=== PATIENT | male | born 1975 | race Caucasian/White ===

== ENCOUNTER 2016-12-03 00:55 | Emergency (ER) | payer OTHER ==
[~2016-12-03] VITALS: Ht 175.3 cm; Wt 92.3 kg
[2016-12-03 00:59] VITALS: Ht 175.3 cm; Wt 92.3 kg
[2016-12-03] MEDS ORDERED: SODIUM CHLORIDE 0.9% 1000ML 1,000 ML IV STA ×4 (01:08→03:34)
[2016-12-03] MEDS ORDERED: MoRPHine SULFATE 4 MG/ML 1 ML CARP\\VIAL IV STA (01:08)
[2016-12-03] MEDS ORDERED: CITA20TA4 PO (01:19)
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
[2016-12-03 01:47] LABS: BASO % 0.5 %; BASO ABS # 0.03 K/uL (0-0.2); COMPLETE YES; EOS % 5.5 %; HEMATOCRIT 44.1 % (42-52); IG% 0.5 %; LYMPH % 47.3 %; LYMPH ABS # 3.09 K/uL (1.2-3.4); MEAN CELL VOLUME 88.7 fL (80-100); MEAN CORPUSCULAR HEMOGLOBIN 31.4 pg (25-34); MEAN CORPUSCULAR HGB CONC 35.4 g/dl (32-36); MEAN PLATELET VOLUME 9.6 fL (7.4-10.4); MONO % 9.8 %; NEUT % 36.4 %; PLATELET COUNT 326 K/uL (130-400); RED BLOOD COUNT 4.97 M/uL (4.7-6.1); WHITE BLOOD COUNT 6.53 K/uL (4.8-10.8)
[2016-12-03 01:55] LABS: INR 0.9 (0.9-1.1); PROTHROMBIN TIME (PATIENT) 9.9 SECONDS (9.0-12.0)
[2016-12-03 02:06] VITALS: O2SAT 98
[2016-12-03 02:18] LABS: BUN/CREATININE RATIO 13.9 (10-20); CALCIUM 7.8 mg/dl (8.5-10.1); CREATININE 0.87 mg/dl (0.60-1.40); POTASSIUM 3.7 mmol/L (3.5-5.1)
[2016-12-03 02:21] LABS: ALB/GLOB RATIO 1.1 (0.9-2)
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
[2016-12-03 07:44] VITALS: BP 128/83
[2016-12-03 07:45] VITALS: PULSE 87; O2SAT 92
== END 2016-12-03 08:06 | disposition short-term general hospital (02) ==
LOC: C.EDB 00:57 → C.EDA 08:06
DX: T20.00XA Burn of unspecified degree of head, face, and neck, unspecified site, initial encounter (principal); T22.00XA Burn of unspecified degree of shoulder and upper limb, except wrist and hand, unspecified site, initial encounter; T23.002A Burn of unspecified degree of left hand, unspecified site, initial encounter; T24.001A Burn of unspecified degree of unspecified site of right lower limb, except ankle and foot, initial encounter; T31.22 Burns involving 20-29% of body surface with 20-29% third degree burns; X08.8XXA Exposure to other specified smoke, fire and flames, initial encounter; F10.129 Alcohol abuse with intoxication, unspecified; Y90.8 Blood alcohol level of 240 mg/100 ml or more; F41.9 Anxiety disorder, unspecified; Z79.899 Other long term (current) drug therapy

== ENCOUNTER 2023-11-24 21:52 | Inpatient (IN) ==
--- OUTSIDE RECORDS SUMMARY | 2023-11-24 21:59 | External Medical Summary | Summary of Care ---
Author Name Unknown Organization [facility] Address [address] [place] [address] Phone [phone] Care Team Providers Care Windlasser Name Role Phone Ramy Verdin Primary Care Provider [phone] Reason for Visit * Reason Onset Date Comments Test Results 11/02/2023 Encounter Details Date Type Department Care Team (Late st Contact Info) Description 11/02/2023 Telephone Family Practice [facility] [address] [place] [address] Pilo Avila DO [address] [place] [address] Test Results Allergies No known active allergiesdocumented as of this encounter (statuses as of 11/02/2023) Medications Medication Sig Dispensed Refills Start Date End Date Status Losartan Potassium 50 MG Oral Tablet (Cozaar)Indications:HT N, goal below 140/90 Take 1.5 Tablets by mouth in the morning. 45 Tablet 5 06/25/2023 Active Citalopram Hydrobromide 20 MG Oral Tablet (CeleXA)Indications:Pa beckie attacks TAKE 1 TABLET BY MOUTH EVERY MORNING 90 Tablet 1 10/29/2023 Active Albuterol Sulfate HFA 108 (90 Base) MCG/ACT Inhalation Aerosol SolutionIndications:Re active airway disease without complication, unspecified asthma severity, unspecified whether persistent Inhale 2 Puffs by mouth in the morning and 2 Puffs at noon and 2 Puffs in the evening and 2 Puffs before bedtime. 18 g 2 10/30/2023 Active Hospital, Clinic, or Other Facility Administered Medication Ordered Dose Route Frequency Start Date End Date Status Albuterol Sulfate (Proventil) (2.5 MG/3ML) 0.083% inhalation solution 2.5 mgIndications:Chronic cough,Chest congestion,Reactive airway disease without complication, unspecified asthma severity, unspecified whether persistent 2.5 mg NEBULIZER ONCE PRN 10/16/2023 10/15/2024 Active documented as of this encounter (statuses as of 11/02/2023) Active Problems Problem Noted Date Diagnosed Date HTN, goal below 130/80 06/25/2023 Mild intermittent asthma without complication Panic attacks 05/19/2015 documented as of this encounter (statuses as of 11/02/2023) Immunizations Name Administration Dates Next Due TDAP (age 10 and older)(Boostrix) 05/19/2015 documented as of this encounter Social History Tobacco Use Types Packs/Day Years Used Date Smoking Tobacco: Never Smokeless Tobacco: Current Snuff Alcohol Use Standard Drinks/Week Comments Yes 10 (1 standard drink = 0.6 oz pu re alcohol) PHQ-2 Answer Date Recorded PHQ Adult Total Score 0 04/05/2022 Utilities Answer Date Recorded Do you have trouble paying y our heating, water, or electric bill? (Adult - for ages 18 years and over) Not on file 10/23/2023 Is your family able to pay t he heat, water, or electric bill? (Household - for ages 0-17 years) Not on file 10/23/2023 Does your family have access to good internet? (Household - for ages 0-17 years) Not on file 10/23/2023 Social Connections Answer Date Recorded How often do you feel lonely or isolated from those around you? (Adult - for ages 18 years and over) Not on file 10/23/2023 Sex and Gender Information Value Date Recorded Sex Assigned at Male 04/02/2023 3:55 PM EST Gender Identity Male 04/02/2023 3:55 PM EST Sexual Orientation Straight 04/02/2023 3: 55 PM EST Job Start Date Occupation Industry Not on file Not on file Not on file documented as of this encounter Miscellaneous Notes * Telephone Encounter - Arlet Ospina MED ASSIST - 11/02/2023 12:57 PM EDT Called patient, left message to return call. Myg sent * Telephone Encounter - Arlet Ospina MED ASSIST - 11/02/2023 12:54 PM EDT ----- Message from Pilo Avila DO sent at 11/02/2023 12:00 PM EDT ----- Reviewed patient's CT chest results. No acute abnormality noted. Is scheduled for PFTs in December. If any worsening symptoms should follow-up in the office documented in this encounter Plan of Treatment Upcoming Encounters Date Type Department Care Team (Late st Contact Info) Description 12/19/2023 3:00 PM EDT PulmDiagnostic Pulmonary Function Lab, [facility] [address] [facility] [address] [place] [address] [place], [address] [place] [address] 01/01/2024 10:20 AM EDT Office Visit General Internal Medicine [facility] [address] [facility] [place] [address] Betty Shin MD [address] [facility] [place] [address] Health Maintenance Due Date Last Done Comments Lipid Panel 1975 Pneumococcal Vaccine: Pediatrics (0 to 5 Years) and At-Risk Patients (6 to 64 Years) (1 of 2 - PCV) 1981 HIV Screening 1990 Hepatitis C Screening 1993 Hepatitis B (1 of 3 - 19+ 3-dose series) 1994 Colonoscopy 2020 Fecal Occult Blood Test 2020 Sigmoidoscopy 2020 COVID-19 Vaccine ( - 2022-2 4 season) 2023 Depression Screening 04/05/2023 04/05/2022 *SPIROMETRY ONCE FOR ASTHMA-ADULT 06/27/2023 Influenza Vaccine (FLU shot) (Season Ended) 2024 GFR 04/03/2024 04/03/2023, 12/04/2016 DTaP,Tdap,and Td Vaccines (2 - Td or Tdap) 05/19/2025 05/19/2015 Cologuard 05/30/2025 05/30/2022, 05/22/2022, 05/22/2022 Colorectal Cancer Screening 05/30/2025 Albumin/Creatinine Ratio 04/03/2026 04/03/2023 Diabetes Screening 04/03/2026 04/03/2023 GARDASIL-HPV IMMUNIZATION SERIES Aged Out No longer eligible b ased on patient's age to complete this topic MENINGOCOCCAL (MENACTRA/MENVEO) Aged Out No longer eligible b ased on patient's age to complete this topic documented as of this encounter Medical Devices Not on filedocumented as of this encounter Care Teams Windlasser Relationship Specialty Start Date End Date Ramy Verdin DO [address] [place] [address] PCP - General Family Medicine 05/19/15 documented as of this encounter
--- OUTSIDE RECORDS SUMMARY | 2023-11-24 21:59 | External Medical Summary | Summary of Care ---
Author Name Unknown Organization [facility] Address [address] [place] [address] Phone [phone] Care Team Providers Care Business Systems Manager Name Role Phone Ramy Verdin Primary Care Provider [phone] Reason for Visit * Reason Onset Date Comments Medication Refill 10/10/2023 Encounter Details Date Type Department Care Team (Late st Contact Info) Description 10/10/2023 Refill General Internal Medicine [facility] [address] [facility] [place] [address] Betty Shin MD [address] [facility] [place] [address] Acute bronchitis, antibiotics not indicated Allergies No known active allergiesdocumented as of this encounter (statuses as of 10/10/2023) Medications Medication Sig Dispensed Refills Start Date End Date Status ProAir HFA 108 (90 Base) MCG/ACT Inhalation Aerosol SolutionIndications:Ac [employer] bronchitis, antibiotics not indicated Inhale 2 Puffs by mouth 4 times a day as needed for Cough or Wheezing. 18 g 3 06/25/2023 Active Losartan Potassium 50 MG Oral Tablet (Cozaar)Indications:HT N, goal below 140/90 Take 1.5 Tablets by mouth in the morning. 45 Tablet 5 06/25/2023 Active Citalopram Hydrobromide 20 MG Oral Tablet (CeleXA)Indications:Pa beckie attacks TAKE 1 TABLET BY MOUTH EVERY MORNING 90 Tablet 08/01/2023 Active predniSONE 10 MG Oral Tablet (Deltasone)Indications :Acute bronchitis, unspecified organism 4 tab x 3d, 3tab x 3d, 2tab x 3d, 1tab x 3d 30 Tablet 08/07/2023 Active documented as of this encounter (statuses as of 10/10/2023) Active Problems Problem Noted Date Diagnosed Date HTN, goal below 130/80 06/25/2023 Mild intermittent asthma without complication Panic attacks 05/19/2015 documented as of this encounter (statuses as of 10/10/2023) Immunizations Name Administration Dates Next Due TDAP (age 10 and older)(Boostrix) 05/19/2015 documented as of this encounter Social History Tobacco Use Types Packs/Day Years Used Date Smoking Tobacco: Never Smokeless Tobacco: Current Snuff Alcohol Use Standard Drinks/Week Comments Yes 10 (1 standard drink = 0.6 oz pu re alcohol) PHQ-2 Answer Date Recorded PHQ Adult Total Score 0 04/05/2022 Sex and Gender Information Value Date Recorded Sex Assigned at Male 04/02/2023 3:55 PM EST Gender Identity Male 04/02/2023 3:55 PM EST Sexual Orientation Straight 04/02/2023 3: 55 PM EST Job Start Date Occupation Industry Not on file Not on file Not on file documented as of this encounter Miscellaneous Notes * Telephone Encounter - Magalie Moralez CPhT - 10/10/2023 1:03 PM EDT Called [facility]- they are filling for pt Pt calling to request ProAir HFA 108 (90 Base) MCG/ACT Inhalation Aerosol Solution . Informed pt that RX is available at their pharmacy. Pt verbalized understanding and stated they will check with their pharmacy regarding this medication. Thank you, Magalie Moralez CPhT II Manager [facility] 10/10/2023, 1:05 PM documented in this encounter Plan of Treatment Upcoming Encounters Date Type Department Care Team (Late st Contact Info) Description 10/16/2023 2:20 PM EDT Office Visit [facility] [address] [place] [phone] Nohemi Wright, [address] [facility] [place] [address] 10/16/2023 4:40 PM EDT Office Visit General Internal Medicine [facility] [address] [facility] [place] [address] Pilo Avila, [address] [address] 01/01/2024 10:20 AM EDT Office Visit General Internal Medicine [facility] [address] [facility] [place] [address] Betty Shin MD [address] [facility] [place] [address] Health Maintenance Due Date Last Done Comments [...] Not on filedocumented as of this encounter Visit Diagnoses Diagnosis Acute bronchitis, antibiotics not indicated Acute bronchitis documented in this encounter Care Teams Business Systems Manager Relationship Specialty Start Date End Date Ramy Verdin DO [address] [place] [address] PCP - General Family Medicine 05/19/15 documented as of this encounter
--- OUTSIDE RECORDS SUMMARY | 2023-11-24 21:59 | External Medical Summary | Summary of Care ---
Author Name Unknown Organization [facility] Address [address] [place] [address] Phone [phone] Care Team Providers Care Business Objects Report Developer Name Role Phone Ramy Verdin Primary Care Provider [phone] Reason for Referral * Precert (Within 10 days (routine)) - Pending Review Specialty Diagnoses / Procedures Referred By Contjose alberto t Referred To Contact Radiology Diagnoses Chronic cough Chest congestion Reactive airway disease without complication, unspecified asthma severity, unspecified whether persistent Procedures CT CHEST WO CONTRAST Pilo Avlia DO [address] [place] [address] Referral ID Status Reason Start Date Expiration Date V isits Requested Visits Authorized [id number] Pending Review 10/16/2023 999 999 Reason for Visit * Reason Comments Chest Discomfort Patient experiences a tightness in his throat that his inhaler relieves. There is some discomforting chest sensations that he experiences pretty consistently. Has been going on since May. Encounter Details Date Type Department Care Team (Late st Contact Info) Description 10/16/2023 4:40 PM EDT Office Visit General Internal Medicine [place] [address] [facility] [place] [address] Pilo Avila DO [address] [place] [address] Chronic cough*; Chest congestion; Reactive airway disease without complication, unspecified asthma severity, unspecified whether persistent Allergies No known active allergiesdocumented as of this encounter (statuses as of 10/17/2023) Medications Medication Sig Dispensed Refills Start Date End Date Status ProAir HFA 108 (90 Base) MCG/ACT Inhalation Aerosol SolutionIndication s:Acute bronchitis, antibiotics not indicated Inhale 2 Puffs by mouth 4 times a day as needed for Cough or Wheezing. 18 g 3 06/25/2023 Active Losartan Potassium 50 MG Oral Tablet (Cozaar)Indication s:HTN, goal below 140/90 Take 1.5 Tablets by mouth in the morning. 45 Tablet 5 06/25/2023 Active Citalopram Hydrobromide 20 MG Oral Tablet (CeleXA)Indication s:Panic attacks TAKE 1 TABLET BY MOUTH EVERY MORNING 90 Tablet 08/01/2023 Active Doxycycline Hyclate 100 MG Oral CapsuleIndications :Acute bronchitis, unspecified organism Take 1 Capsule by mouth in the morning and 1 Capsule before bedtime. Do all this for 7 days. Until gone.. 14 Capsule 08/07/2023 10/16/2023 Discontinued (Patient preference/d iscontinuati on) predniSONE 10 MG Oral Tablet (Deltasone)Indicat ions:Acute bronchitis, unspecified organism 4 tab x 3d, 3tab x 3d, 2tab x 3d, 1tab x 3d 30 Tablet 08/07/2023 10/16/2023 Discontinued (Medication List Clean Up) Hospital, Clinic, or Other Facility Administered Medication Ordered Dose Route Frequency Start Date End Date Status Albuterol Sulfate (Proventil) (2.5 MG/3ML) 0.083% inhalation solution 2.5 mgIndications:Chronic cough,Chest congestion,Reactive airway disease without complication, unspecified asthma severity, unspecified whether persistent 2.5 mg NEBULIZER ONCE PRN 10/16/2023 10/15/2024 Active documented as of this encounter (statuses as of 10/17/2023) Active Problems Problem Noted Date Diagnosed Date HTN, goal below 130/80 06/25/2023 Mild intermittent asthma without complication Panic attacks 05/19/2015 documented as of this encounter (statuses as of 10/17/2023) Immunizations Name Administration Dates Next Due TDAP (age 10 and older)(Boostrix) 05/19/2015 documented as of this encounter Social History Tobacco Use Types Packs/Day Years Used Date Smoking Tobacco: Never Smokeless Tobacco: Current Snuff Tobacco Cessation:Ready to Q uit: Not Asked; Counseling Given: Not Answered Alcohol Use Standard Drinks/Week Comments Yes 10 [...] on file documented as of this encounter Last Filed Vital Signs Vital Sign Reading Time Taken Comments Blood Pressure 130/80 10/16/2023 4:44 PM EDT Pulse 90 10/16/2023 4:44 PM EDT Temperature 36.7 C (98 F) 10/16/2023 4:44 PM EDT Respiratory Rate 16 10/16/2023 4:44 PM EDT Oxygen Saturation 98% 10/16/2023 4:44 PM EDT Inhaled Oxygen Concentration - - Weight 95.3 kg (210 lb) 10/16/2023 4:44 PM EDT Height - - Body Mass Index 31.01 07/26/2023 3:12 PM EDT documented in this encounter Progress Notes * Pilo Avila, - 10/16/2023 4:50 PM EDT Subjective Pilo Alexander is a 48 year old male. Chief Complaint Patient presents with Chest Discomfort Patient experiences a tightness in his throat that his inhaler relieves. There is some discomforting chest sensations that he experiences pretty consistently. Has been going on since May. HPI: Patient presents to office with continued sensation of chest congestion. Was seen for similar complaint in August 25, 2023. Had been noting since May overall. Treated with multiple courses ofantibiotics without much relief. Does state that albuterol HFA has helped. At last visit was given course of doxycycline 100 mg twice daily for 7 days as well as prednisone taper for possible bronchitis. Chest x-ray at that time was negative for acute cardiopulmonary pathology. States felt better for about 2 weeks after this regimen. Not needing inhaler much After that some symptoms seemed to return. States can still have occasional cough. Sometimes chest feels congested. Sometimes something stuck at back of throat. Albuterol seems to relieve this. Will at least wake up once at night. Also have symptoms in morning. States he does not feel ill. Fever chills. No sore throat/sinus pressure. No GI symptoms such as nausea or diarrhea Again states that inhaler provide some temporary relief. He does have a listed diagnosis of intermittent asthma. Unsure when his last spirometry testing was. Again did seem to note that he did not have any symptoms at all earlier this winter when his family took a vacation to [facility] PMH: Patient Active Problem List Diagnosis Panic attacks HTN, goal below 130/80 Mild intermittent asthma without complication Current Outpatient Medications Medication Sig Dispense Refill ProAir HFA 108 (90 Base) MCG/ACT Inhalation Aerosol Solution Inhale 2 Puffs by mouth 4 times a day as needed for Cough or Wheezing. 18 g 3 Losartan Potassium 50 MG Oral Tablet (Cozaar) Take 1.5 Tablets by mouth in the morning. 45 Tablet 5 Citalopram Hydrobromide 20 MG Oral Tablet (CeleXA) TAKE 1 TABLET BY MOUTH EVERY MORNING 90 Tablet 0 No current facility-administered medications for this visit. Past Medical History: Diagnosis Date HTN, goal below 140/90 Panic attacks Past Surgical History: Procedure Laterality Date REMOVAL OF TONSILS, UNDER AGE 12 VASECTOMY 01-28-2016 Review of patient's allergies indicates: No Known Allergies Family History Problem Relation Name Age of Onset Hypertension Mother Cancer Grandmother (Maternal) Blood cancer Diabetes Grandmother (Maternal) Cancer Grandfather (Maternal) Colon around age 65 Heart Disorder Grandmother (Paternal) DE Heart Disorder Grandfather (Paternal) Quad bypass Family Status Relation Status Mo Alive Depression Fa Alive Sis Alive Radha Alive Son Alive Son Alive MGMA (Not Specified) MGFA (Not Specified) PGMA (Not Specified) PGFA (Not Specified) Social History Socioeconomic History Marital status: Single Spouse name: Not on file Number of children: Not on file Years of education: Not on file Highest education level: Not on file Occupational History Occupation: Contractor Comment: Construction Tobacco Use Smoking status: Never Smokeless tobacco: Current Types: Snuff Vaping Use Vaping status: Never Used Substance and Sexual Activity Alcohol use: Yes Alcohol/week: 10.0 standard drinks of alcohol Types: 10 12 oz of beer per week Drug use: No Sexual activity: Yes Partners: Female Other Topics Concern WOWash Service Not Asked Blood Transfusions Not Asked Caffeine Concern Not Asked Occupational Exposure Not Asked Hobby Hazards Not Asked Sleep Concern Not Asked Stress Concern Not Asked Weight Concern Not Asked Special Diet Not Asked Back Care Not Asked Exercise Not Asked Bike Helmet Not Asked Seat Belt Yes Self-Exams Not Asked Social History Narrative Originally from [facility]. Came to [place] for work until he met someone here. Moved here 2013 Social Determinants of Health Financial Resource Strain: Not on file Food Insecurity: Not on file Transportation Needs: Not on file Physical Activity: Not on file Stress: Not on file Social Connections: Not on file Intimate Partner Violence: Not on file Housing Stability: Not on file Review of Systems Constitutional: Negative for chills, fatigue and fever. HENT: Negative for congestion, sore throat and trouble swallowing. Eyes: Negative for photophobia and pain. Respiratory: Positive for cough and wheezing. Negative for shortness of breath. Cardiovascular: Negative for chest pain, palpitations and leg swelling. Gastrointestinal: Negative for abdominal distention, abdominal pain, nausea and vomiting. Genitourinary: Negative for dysuria and frequency. Musculoskeletal: Negative for back pain and neck stiffness. Skin: Negative for pallor. Neurological: Negative for dizziness, light-headedness and headaches. Psychiatric/Behavioral: Negative for sleep disturbance. The patient is not nervous/anxious. Objective BP 130/80 | Pulse 90 | Temp 36.7 C (98 F) (Tympanic) | Resp 16 | Wt 95.3 kg (210 lb) | SpO2 98%| BMI 31.01 kg/m | BSA 2.15 m Physical Exam Constitutional: General: He is not in acute distress. Appearance: He is not ill-appearing. HENT: Head: Normocephalic and atraumatic. Right Ear: Tympanic membrane, ear canal and external ear normal. Left Ear: Tympanic membrane, ear canal and external ear normal. Nose: Nose normal. No congestion or rhinorrhea. Mouth/Throat: Mouth: Mucous membranes are moist. Pharynx: Oropharynx is clear. No oropharyngeal exudate or posterior oropharyngeal erythema. Eyes: General: No scleral icterus. Extraocular Movements: Extraocular movements intact. Conjunctiva/sclera: Conjunctivae normal. Pupils: Pupils are equal, round, and reactive to light. Neck: Vascular: No carotid bruit. Cardiovascular: Rate and Rhythm: Normal rate and regular rhythm. Pulses: Normal pulses. Heart sounds: Normal heart sounds. No murmur heard. No friction rub. No gallop. Pulmonary: Effort: Pulmonary effort is normal. No respiratory distress. Breath sounds: No stridor. Rhonchi present. No wheezing or rales. Comments: No tachypnea or accessory muscle use. Both lungs tympanic to percussion. Does have some scattered expiratory rhonchi but much improved from last visit. Chest: Chest wall: No tenderness. Abdominal: General: Bowel sounds are normal. There is no distension. Palpations: Abdomen is soft. There is no mass. Tenderness: There is no abdominal tenderness. There is no right CVA tenderness or left CVA tenderness. Musculoskeletal: General: No swelling or tenderness. Normal range of motion. Cervical back: Normal range of motion and neck supple. Right lower leg: No edema. Left lower leg: No edema. Skin: General: Skin is warm and dry. Coloration: Skin is not jaundiced. Findings: No rash. Neurological: General: No focal deficit present. Mental Status: He is oriented to person, place, and time. Cranial Nerves: No cranial nerve deficit. Sensory: No sensory deficit. Motor: No weakness. Psychiatric: Mood and Affect: Mood normal. Behavior: Behavior normal. ASSESSMENT/PLAN: Chronic cough (Primary) - CT CHEST WO CONTRAST - SPIROMETRY B/A BRONCHODILATOR; Future; Expected date: 10/16/2023 - Albuterol Sulfate (Proventil) (2.5 MG/3ML) 0.083% inhalation solution 2.5 mg Chest congestion - CT CHEST WO CONTRAST - SPIROMETRY B/A BRONCHODILATOR; Future; Expected date: 10/16/2023 - Albuterol Sulfate (Proventil) (2.5 MG/3ML) 0.083% inhalation solution 2.5 mg Reactive airway disease without complication, unspecified asthma severity, unspecified whether persistent - CT CHEST WO CONTRAST - SPIROMETRY B/A BRONCHODILATOR; Future; Expected date: 10/16/2023 - Albuterol Sulfate (Proventil) (2.5 MG/3ML) 0.083% inhalation solution 2.5 mg Plan: Patient presents to office for continued cough, chest congestion, occasional wheezing. Does not seem to have any evidence of acute respiratory infection at this time. Previous chest x-ray clear As he notes some transient improvement with albuterol, I suspect this could be his asthma not beingwell controlled or other type of reactive airway syndrome. He felt better with last treatment whichmay have been the prednisone. He had not had a prednisone taper prior He may have had less symptoms while in [place] as it is dry or climate there. Likely less allergens Would like to check CT chest without contrast to further evaluate his lungs. Previous chest x-ray looked clear. Does still sound to have some chest congestion on exam Check PFTs to rule out reactive airway or obstructive defects. Pending results may benefit from maintenance inhaler such as Advair Continue albuterol HFA 2 puffs every 6 hours as needed. Do not see indication for further antibiotics at this time Continue other meds/management Follow Up: Return in about 6 weeks (around 11/27/2023), or if symptoms worsen or fail to improve, for Return with Physician. | For: Return with Physician | Check-out note: Follow-up 6-8 weeks after testing done CT chest without contrast, PFTs ordered for Didi Sinha I spent a total of 40-54 minutes (exact time 42 mins) on the date of service in preparation, delivery, and documentation of the care provided to Pilo Alexander excluding any time spent in the performance of separately billed services. Pilo Avila DO documented in this encounter Nursing Notes * Phu King MED ASSIST - 10/16/2023 4:45 PM EDT documented in this encounter Plan of Treatment Upcoming Encounters Date Type Department Care Team (Late st Contact Info) Description 01/01/2024 10:20 AM EDT Office Visit General Internal Medicine [place] [address] [place] [address] Betty Shin MD [address] [place] [address] Scheduled Orders Name Type Priority Associated Diagnoses Orde r Schedule CT CHEST WO CONTRAST Medical Imaging Routine Chronic cough Chest congestion Reactive airway disease without complication, unspecified asthma severity, unspecified whether persistent Ordered: 10/16/2023 SPIROMETRY B/A BRONCHODILATOR Procedures Routine Chronic cough Chest congestion Reactive airway disease without complication, unspecified asthma severity, unspecified whether persistent Expected: 10/16/2023, Expires: 11/14/2024 Health Maintenance Due Date Last Done Comments [...] as of this encounter Visit Diagnoses Diagnosis Chronic cough- Primary Cough Chest congestion Other symptoms involving respiratory system and chest Reactive airway disease without complication, unspecified asthma severity, unspecified whether persistent documented in this encounter Care Teams Business Objects Report Developer Relationship Specialty Start Date End Date Ramy Verdin DO [address] [place] [address], [place] [address] PCP - General Family Medicine 05/19/15 documented as of this encounter"
--- OUTSIDE RECORDS SUMMARY | 2023-11-24 21:59 | External Medical Summary | Summary of Care ---
Author Name Unknown Organization [facility] Address [address] [place] [address] Phone [phone] Care Team Providers Care Senior Power Plant Operator Name Role Phone Ramy Verdin DO Primary Care Provider [phone] Reason for Visit * Reason Onset Date Comments Medication Management 10/29/2023 Test Results 10/29/2023 Encounter Details Date Type Department Care Team (Late st Contact Info) Description 10/29/2023 [facility] [address] [place] [address] Ramy Verdin DO [address] [place] [address] Medication Management; Test Results Allergies No known active allergiesdocumented as of this encounter (statuses as of 10/29/2023) Medications Medication Sig Dispensed Refills Start Date End Date Status Losartan Potassium 50 MG Oral Tablet (Cozaar)Indications:HT N, goal below 140/90 Take 1.5 Tablets by mouth in the morning. 45 Tablet 5 06/25/2023 Active Albuterol Sulfate HFA 108 (90 Base) MCG/ACT Inhalation Aerosol SolutionIndications:Ac [place] bronchitis, antibiotics not indicated Inhale 2 Puffs by mouth 4 times a day as needed for Cough or Wheezing. 18 g 2 10/26/2023 Active Citalopram Hydrobromide 20 MG Oral Tablet (CeleXA)Indications:Pa beckie attacks TAKE 1 TABLET BY MOUTH EVERY MORNING 90 Tablet 1 10/29/2023 Active Hospital, Clinic, or Other Facility Administered Medication Ordered Dose Route Frequency Start Date End Date Status Albuterol Sulfate (Proventil) (2.5 MG/3ML) 0.083% inhalation solution 2.5 mgIndications:Chronic cough,Chest congestion,Reactive airway disease without complication, unspecified asthma severity, unspecified whether persistent 2.5 mg NEBULIZER ONCE PRN 10/16/2023 10/15/2024 Active documented as of this encounter (statuses as of 10/29/2023) Active Problems Problem Noted Date Diagnosed Date HTN, goal below 130/80 06/25/2023 Mild intermittent asthma without complication Panic attacks 05/19/2015 documented as of this encounter (statuses as of 10/29/2023) Immunizations Name Administration Dates Next Due TDAP [...] encounter Miscellaneous Notes * Telephone Encounter - Grover Salas OSA - 10/29/2023 12:54 PM EDT Pt came to office asking about his inhaler Rx. Pt stated that he was prescribed the inhaler "as needed" and is using it more than [facility]. He is requesting that the dosage be changed on his Rx as the insurance is not allowing him to refill until 11/01/23. He is leaving town on 10/29, so he is unable to be seen prior to this. He is also requesting to be called with the results of his CT scan performed on 10/23/23. Please advise. documented in this encounter Plan of Treatment Upcoming Encounters Date Type Department Care Team (Late st Contact Info) Description 12/19/2023 3:00 PM EDT PulmDiagnostic Pulmonary Function Lab, [facility] [address] [facility] [place] [address] [place], [address] [address] [facility] [place] [address] 01/01/2024 10:20 AM EDT Office Visit General Internal Medicine [facility] [address] [facility] [place] [address] Betty Shin MD [address] [facility] [place] [address] Health Maintenance Due Date Last Done Comments Lipid Panel 1975 Pneumococcal Vaccine: Pediatrics (0 to 5 Years) and At-Risk Patients (6 to 64 Years) (1 of 2 - PCV) 1981 HIV Screening 1990 Hepatitis C Screening 1993 Hepatitis B (1 of 3 - 19+ 3-dose series) 1994 Colonoscopy 2020 Fecal Occult Blood Test 2020 Sigmoidoscopy 2020 COVID-19 Vaccine (1 - 2022-2 4 season) 2023 Depression Screening [...] filedocumented as of this encounter Care Teams Senior Power Plant Operator Relationship Specialty Start Date End Date Ramy Verdin DO [address] [place] [address] PCP - General Family Medicine 05/19/15 documented as of this encounter
--- OUTSIDE RECORDS SUMMARY | 2023-11-24 21:59 | External Medical Summary | Summary of Care ---
Author Name Unknown Organization [facility] Address [address] [place] [address] Phone [phone] Care Team Providers Care Head Butler Name Role Phone AlejandroRamy azul Primary Care Provider [phone] Reason for Visit * Reason Comments eRx-Medication Refill Encounter Details Date Type Department Care Team (Late st Contact Info) Description 10/25/2023 Refill General Internal Medicine [facility] [place] [address] [facility] [place] [address] Betty Shin MD [address] [facility] [place] [address] Acute bronchitis, antibiotics not indicated Allergies No known active allergiesdocumented as of this encounter (statuses as of 10/26/2023) Medications Medication Sig Dispensed Refills Start Date End Date Status Losartan Potassium 50 MG Oral Tablet (Cozaar)Indication s:HTN, goal below 140/90 Take 1.5 Tablets by mouth in the morning. 45 Tablet 5 06/25/2023 Active Citalopram Hydrobromide 20 MG Oral Tablet (CeleXA)Indication s:Panic attacks TAKE 1 TABLET BY MOUTH EVERY MORNING 90 Tablet 08/01/2023 Active Albuterol Sulfate HFA 108 (90 Base) MCG/ACT Inhalation Aerosol SolutionIndication s:Acute bronchitis, antibiotics not indicated Inhale 2 Puffs by mouth 4 times a day as needed for Cough or Wheezing. 18 g 2 10/26/2023 Active ProAir HFA 108 (90 Base) MCG/ACT Inhalation Aerosol SolutionIndication s:Acute bronchitis, antibiotics not indicated Inhale 2 Puffs by mouth 4 times a day as needed for Cough or Wheezing. 18 g 3 06/25/2023 10/26/2023 Discontinued Hospital, Clinic, or Other Facility Administered Medication Ordered Dose Route Frequency Start Date End Date Status Albuterol Sulfate (Proventil) (2.5 MG/3ML) 0.083% inhalation solution 2.5 mgIndications:Chronic cough,Chest congestion,Reactive airway disease without complication, unspecified asthma severity, unspecified whether persistent 2.5 mg NEBULIZER ONCE PRN 10/16/2023 10/15/2024 Active documented as of this encounter (statuses as of 10/26/2023) Active Problems Problem Noted Date Diagnosed Date HTN, goal below 130/80 06/25/2023 Mild intermittent asthma without complication Panic attacks 05/19/2015 documented as of this encounter (statuses as of 10/26/2023) Immunizations Name Administration Dates Next Due TDAP [...] encounter Miscellaneous Notes * Telephone Encounter - Brandi Nixon [facility] - 10/26/2023 7:22 AM EDTSigned Prescriptions: Disp Refills Albuterol Sulfate HFA 108 (90 Base) MCG/AC*18 g 2 Sig: Inhale 2Puffs by mouth 4 times a day as needed for Cough or Wheezing.Authorizing Provider: Olga SHIN User: BRANDI NIXON documented in this encounter Plan of Treatment Upcoming Encounters Date Type Department Care Team (Late st Contact Info) Description 01/01/2024 10:20 AM EDT Office Visit General Internal Medicine [facility] [address] [facility] [place] [address] Betty Shin MD [address] [place] [address] Health Maintenance Due Date Last Done Comments [...] bronchitis documented in this encounter Care Teams Head Butler Relationship Specialty Start Date End Date Ramy Verdin DO [address] [place] [address] PCP - General Family Medicine 05/19/15 documented as of this encounter
--- OUTSIDE RECORDS SUMMARY | 2023-11-24 21:59 | External Medical Summary | Summary of Care ---
Author Name Unknown Organization [facility] Address [address] [place] [address] Phone [phone] Care Team Providers Care Vessel Operator Name Role Phone AlejandroRamy azul Primary Care Provider [phone] Reason for Visit * Reason Comments eRx-Medication Refill Encounter Details Date Type Department Care Team (Late st Contact Info) Description 10/28/2023 Refill General Internal Medicine [facility] [place] 200 [facility] [place] [address] Betty Shin MD 200 [facility] [place] [address] Panic attacks Allergies No known active allergiesdocumented as of [...] EVERY MORNING 90 Tablet 1 10/29/2023 Active Citalopram Hydrobromide 20 MG Oral Tablet (CeleXA)Indication s:Panic attacks TAKE 1 TABLET BY MOUTH EVERY MORNING 90 Tablet 08/01/2023 10/29/2023 Discontinued Hospital, Clinic, or Other Facility Administered [...] encounter Miscellaneous Notes * Telephone Encounter - Priscilla Cuevas RPh - 10/29/2023 9:37 AM EDTSigned Prescriptions: Disp Refills Citalopram Hydrobromide 20 MG Oral Tablet *90 Tab*1 Sig: TAKE 1 TABLET BY MOUTH EVERY MORNINGAuthorizing Provider: Olga SHIN User: PRISCILLA CUEVAS-------- * Telephone Encounter - Priscilla Cuevas RPh - 10/29/2023 9:35 AM EDT RX authorized. Zero refills given until upcoming appt. 12/31 Priscilla Tirado PharmD Clinical Pharmacist [facility] [phone] 10/29/2023, 9:35 AM documented in this encounter Plan of Treatment Upcoming Encounters Date Type Department Care Team (Late st Contact Info) Description 01/01/2024 10:20 AM EDT Office Visit General Internal Medicine [facility] 200 [facility] [place] [address] Betty Shin MD 200 [place] [address] Health Maintenance Due Date Last Done Comments [...] as of this encounter Visit Diagnoses Diagnosis Panic attacks Panic disorder without agoraphobia documented in this encounter Care Teams Vessel Operator Relationship Specialty Start Date End Date Ramy Verdin DO [address] [place] [address] PCP - General Family Medicine 05/19/15 documented as of this encounter
--- OUTSIDE RECORDS SUMMARY | 2023-11-24 21:59 | External Medical Summary | Summary of Care ---
Author Name Unknown Organization [facility] Address [address] [place] [address] Phone [phone] Care Team Providers Care Cloth Reeler Name Role Phone Ramy Verdin Primary Care Provider [phone] Reason for Visit * Reason Onset Date Comments MyCode Nonconsent - Not interested at this time 08/07/2023 Encounter Details Date Type Department Care Team (Late st Contact Info) Description 08/07/2023 Orders Only Outcomes Research Department [address] [place] [address] Ebony Weldon CHRA MyCode Nonconsent Documentation Allergies No known active allergiesdocumented as of this encounter (statuses as of 08/07/2023) Medications Medication Sig Dispensed Refills Start Date End Date Status ProAir HFA 108 (90 Base) MCG/ACT Inhalation Aerosol SolutionIndications: Acute bronchitis, antibiotics not indicated Inhale 2 Puffs by mouth 4 times a day as needed for Cough or Wheezing. 18 g 3 06/25/2023 Active Losartan Potassium 50 MG Oral Tablet (Cozaar)Indications: HTN, goal below 140/90 Take 1.5 Tablets by mouth in the morning. 45 Tablet 5 06/25/2023 Active Citalopram Hydrobromide 20 MG Oral Tablet (CeleXA)Indications: Panic attacks TAKE 1 TABLET BY MOUTH EVERY MORNING 90 Tablet 0 08/01/2023 Active Doxycycline Hyclate 100 MG Oral CapsuleIndications:A cute bronchitis, unspecified organism Take 1 Capsule by mouth in the morning and 1 Capsule before bedtime. Do all this for 7 days. Until gone.. 14 Capsule 0 08/07/2023 08/14/2023 Active predniSONE 10 MG Oral Tablet (Deltasone)Indicatio ns:Acute bronchitis, unspecified organism 4 tab x 3d, 3tab x 3d, 2tab x 3d, 1tab x 3d 30 Tablet 0 08/07/2023 Active documented as of this encounter (statuses as of 08/07/2023) Active Problems Problem Noted Date Diagnosed Date HTN, goal below 130/80 06/25/2023 Mild intermittent asthma without complication Panic attacks 05/19/2015 documented as of this encounter (statuses as of 08/07/2023) Immunizations Name Administration Dates Next Due TDAP [...] on file documented as of this encounter Progress Notes * Ebony Weldon CHRA - 08/07/2023 11:59 AM EDT MyCode Nonconsent Documentation Pilo Raine Alexander was approached in the clinic regarding participation in the MyCode Project and did not consent. documented in this encounter Plan of Treatment Upcoming Encounters Date Type Department Care Team (Late st Contact Info) Description 08/07/2023 12:30 PM EDT [facility] [place] [address] [place] [address] Arrived 10/16/2023 2:20 PM EDT Office Visit [facility] Disorders Ctr Didi Sinha [place] [address] [place] [phone] Nohemi [place], [address] [place] [address] 01/01/2024 10:20 AM EDT Office Visit General Internal Medicine [place] [address] [place] [address] Betty Shin MD 200 [facility] [place] [address] Health Maintenance Due Date Last Done Comments [...] filedocumented as of this encounter Care Teams Cloth Reeler Relationship Specialty Start Date End Date Ramy Verdin DO [address] [place] [address] PCP - General Family Medicine 05/19/15 documented as of this encounter
--- OUTSIDE RECORDS SUMMARY | 2023-11-24 21:59 | External Medical Summary | Summary of Care ---
Author Name Unknown Organization [facility] Address [address] [place] [address] Phone [phone] Care Team Providers Care Branch Maker Name Role Phone Ramy Verdin DO Primary Care Provider [phone] Reason for Visit * Reason Onset Date Comments Medication Management 10/29/2023 Test Results 10/29/2023 Encounter Details Date Type Department Care Team (Late st Contact Info) Description 10/29/2023 Telephone Family Practice [facility] [place] [address] [place] [address] Ramy Verdin DO 200 [facility] [place] [address] Medication Management; Test Results Allergies No known active allergiesdocumented as of this encounter (statuses as of 10/30/2023) Medications Medication Sig Dispensed Refills Start Date End Date Status Losartan Potassium 50 MG Oral Tablet (Cozaar)Indications :HTN, goal below 140/90 Take 1.5 Tablets by mouth in the morning. 45 Tablet 5 06/25/2023 Active Citalopram Hydrobromide 20 MG Oral Tablet (CeleXA)Indications :Panic attacks TAKE 1 TABLET BY MOUTH EVERY MORNING 90 Tablet 1 10/29/2023 Active Albuterol Sulfate HFA 108 (90 Base) MCG/ACT Inhalation Aerosol SolutionIndications :Reactive airway disease without complication, unspecified asthma severity, unspecified whether persistent Inhale 2 Puffs by mouth in the morning and 2 Puffs at noon and 2 Puffs in the evening and 2 Puffs before bedtime. 18 g 2 10/30/2023 Active Albuterol Sulfate HFA 108 (90 Base) MCG/ACT Inhalation Aerosol SolutionIndications :Acute bronchitis, antibiotics not indicated Inhale 2 Puffs by mouth 4 times a day as needed for Cough or Wheezing. 18 g 2 10/26/2023 10/30/2023 Discontinued (Refill) Hospital, Clinic, or Other Facility Administered Medication Ordered Dose Route Frequency Start Date End Date Status Albuterol Sulfate (Proventil) (2.5 MG/3ML) 0.083% inhalation solution 2.5 mgIndications:Chronic cough,Chest congestion,Reactive airway disease without complication, unspecified asthma severity, unspecified whether persistent 2.5 mg NEBULIZER ONCE PRN 10/16/2023 10/15/2024 Active documented as of this encounter (statuses as of 10/30/2023) Active Problems Problem Noted Date Diagnosed Date HTN, goal below 130/80 06/25/2023 Mild intermittent asthma without complication Panic attacks 05/19/2015 documented as of this encounter (statuses as of 10/30/2023) Immunizations Name Administration Dates Next Due TDAP [...] as of this encounter Miscellaneous Notes * Addendum Note - Pilo Dorado DO - 10/30/2023 11:03 AM EDT Addended by: PILO DORADO on: 10/30/2023 11:03 AM Modules accepted: Orders * Telephone Encounter - Pilo Dorado DO - 10/30/2023 11:00 AM EDT I did change the prescription for albuterol HFA 2 puffs 4 times daily standing. Send a new prescription to the pharmacy If the albuterol HFA is helping but not lasting long, the other possibility could be to try maintenance inhaler such as Dulera 2 puffs twice daily and used albuterol as needed I briefly reviewed his CT chest images. Lungs seem clear overall. However radiology interpretation is pending. Will reach out to patient once received He is scheduled for PFTs at the end of the summer * Telephone Encounter - Grover Salas OSA - 10/29/2023 12:54 PM EDT Pt came to office asking about his inhaler Rx. Pt stated that he was prescribed the inhaler "as needed" and is using it more than discussed with Dr. Dorado at appt on 10/16/23. He is requesting that the [...] 3:00 PM EDT PulmDiagnostic Pulmonary Function Lab, [facility] [address] [place] [address] [place], [address] [place] [address] 01/01/2024 10:20 AM EDT Office Visit General Internal Medicine [facility] 200 [facility] [place] [address] Betty Shin MD 200 [facility] [place] [address] Health Maintenance Due Date Last Done Comments [...] as of this encounter Visit Diagnoses Diagnosis Reactive airway disease without complication, unspecified asthma severity, unspecified whether persistent- Primary Acute bronchitis, antibiotics not indicated Acute bronchitis documented in this encounter Care Teams Branch Maker Relationship Specialty Start Date End Date Ramy Verdin DO [address] [place] [address] PCP - General Family Medicine 05/19/15 documented as of this encounter
--- OUTSIDE RECORDS SUMMARY | 2023-11-24 21:59 | External Medical Summary | Summary of Care ---
Author Name Unknown Organization [facility] Address [address] [place] [address] Phone [phone] Care Team Providers Care Salvage Inspector Wood [employer] Name Role Phone Ramy Verdin DO Primary Care Provider Reason for Visit * Reason Onset Date Comments Medication Management 10/29/2023 Test Results 10/29/2023 Encounter Details Date Type Department Care Team (Late st Contact Info) Description 10/29/2023 [facility] [address] [place] [address] Ramy Verdin DO [address] [place] [address] Medication Management; Test Results Allergies No known active allergiesdocumented as of this encounter (statuses as of 10/30/2023) Medications Medication Sig Dispensed Refills Start Date End Date Status Losartan Potassium 50 MG Oral Tablet (Cozaar)Indications:HT N, goal below 140/90 Take 1.5 Tablets by mouth in the morning. 45 Tablet 5 06/25/2023 Active Albuterol Sulfate HFA 108 (90 Base) MCG/ACT Inhalation Aerosol SolutionIndications:Ac [place] bronchitis, antibiotics not indicated Inhale 2 Puffs [...] more [facility]. He is requesting that the [...] 3:00 PM EDT PulmDiagnostic Pulmonary Function Lab, [facility] 132 [facility] [place] [address] [place], [address] [facility] [place] [address] 01/01/2024 10:20 AM EDT Office Visit General Internal Medicine [facility] 200 [facility] [place] [address] Betty Shin MD 200 [facility] [place] [address] Health Maintenance Due Date Last Done Comments [...] filedocumented as of this encounter Care Teams Salvage Inspector Wood Parts Relationship Specialty Start Date End Date Ramy Verdin DO [address] [place] [address] PCP - General Family Medicine 05/19/15 documented as of this encounter
--- OUTSIDE RECORDS SUMMARY | 2023-11-24 21:59 | External Medical Summary | Summary of Care ---
Author Name Unknown Organization [facility] Address [address] [place] [address] Phone [phone] Care Team Providers Care Jigger Machine Operator Name Role Phone Ramy Verdin Primary Care Provider [phone] Reason for Visit * Reason Onset Date Comments Test Results 08/08/2023 Encounter Details Date Type Department Care Team ([facility] st Contact Info) Description 08/08/[address] [address] Pilo Avila DO [address] [place] [id number] Test Results Allergies No known active allergiesdocumented as of this encounter (statuses as of 08/08/2023) Medications Medication Sig Dispensed Refills Start Date [...] as of this encounter (statuses as of 08/08/2023) Active Problems Problem Noted Date Diagnosed Date HTN, goal below 130/80 06/25/2023 Mild intermittent asthma without complication Panic attacks 05/19/2015 documented as of this encounter (statuses as of 08/08/2023) Immunizations Name Administration Dates Next Due TDAP [...] encounter Miscellaneous Notes * Telephone Encounter - Channing Morrissey RN - 08/08/2023 10:00 AM EDT Message sent via Rupeet[employer]. Provider to address: n/a Reason for Call: Test Results Contact: [facility] Contact Type: Test Results Outcome: See above Face to face time spent with Patient (minutes): 0 Total Time including non face to face (minutes): 10 Channing Morrissey RN BSN [facility] Primary Care Nurse Coordinator [facility] (Helping out) * Telephone Encounter - Channing Morrissey RN - 08/08/2023 9:59 AM EDT ----- Message from Pilo Avila DO sent at 08/08/2023 9:12 AM EDT ----- Apologize if this is the wrong pool as I am new to the office. Patient's chest x-ray reviewed and showed no acute disease. Should continue medications per visit. Follow-up as scheduled documented in this encounter Plan of Treatment Upcoming Encounters Date Type Department Care Team (Late st Contact Info) Description 10/16/2023 2:20 PM EDT Office Visit Sleep Disorders Ctr Didi Sinha [place] [address] [place] [phone] Nohemi [place] DO [address] [place] [address] 01/01/2024 10:20 AM EDT Office Visit General Internal Medicine Mk [place]ap [place] [address] [place] [address] Betty Shin MD 200 [facility] [place] [address] Health Maintenance Due Date Last Done Comments [...] filedocumented as of this encounter Care Teams Jigger Machine Operator Relationship Specialty Start Date End Date Ramy Verdin DO [address] [place] [address] PCP - General Family Medicine 05/19/15 documented as of this encounter
--- OUTSIDE RECORDS SUMMARY | 2023-11-24 21:59 | External Medical Summary | Summary of Care ---
Author Name Unknown Organization [facility] Address [address] [place] [address] Phone [phone] Care Team Providers Care Weekend Caregiver Name Role Phone AlejandroRamy azul Primary Care Provider Reason for Visit * Reason Comments Eye Problem Encounter Details Date Type Department Care Team (Late st Contact Info) Description 11/14/2023 12:40 PM EDT Telemedicine Virtual Urgent Care [address] [facility] [place], [place] [id number] Brandi Donaldson PA-C [address] [place], [place] [phone] Hordeolum externum of left lower eyelid* Allergies No known active allergiesdocumented as of this encounter (statuses as of 11/14/2023) Medications Medication Sig Dispensed Refills Start Date End Date Status Losartan Potassium 50 MG Oral Tablet (Cozaar)Indications: HTN, goal below 140/90 Take 1.5 Tablets by mouth in the morning. 45 Tablet 5 06/25/2023 Active Citalopram Hydrobromide 20 MG Oral Tablet (CeleXA)Indications: Panic attacks TAKE 1 TABLET BY MOUTH EVERY MORNING 90 Tablet 1 10/29/2023 Active Albuterol Sulfate HFA 108 (90 Base) MCG/ACT Inhalation Aerosol SolutionIndications: Reactive airway disease without complication, unspecified asthma severity, unspecified whether persistent Inhale 2 Puffs by mouth in the morning and 2 Puffs at noon and 2 Puffs in the evening and 2 Puffs before bedtime. 18 g 2 10/30/2023 Active Erythromycin 5 MG/GM Ophthalmic OintmentIndications: Hordeolum externum of left lower eyelid Instill into eye 4 times a day for 10 days. Apply to affected eye(s) until redness and discharge resolved. 1 g 11/14/2023 11/24/2023 Active Hospital, Clinic, or Other Facility Administered Medication Ordered Dose Route Frequency Start Date End Date Status Albuterol Sulfate (Proventil) (2.5 MG/3ML) 0.083% inhalation solution 2.5 mgIndications:Chronic cough,Chest congestion,Reactive airway disease without complication, unspecified asthma severity, unspecified whether persistent 2.5 mg NEBULIZER ONCE PRN 10/16/2023 10/15/2024 Active documented as of this encounter (statuses as of 11/14/2023) Active Problems Problem Noted Date Diagnosed Date HTN, goal below 130/80 06/25/2023 Mild intermittent asthma without complication Panic attacks 05/19/2015 documented as of this encounter (statuses as of 11/14/2023) Immunizations Name Administration Dates Next Due TDAP [...] as of this encounter Progress Notes * Brandi Donaldson PA-C - 11/14/2023 12:39 PM EDT Patient location: HOME. I was not in a hospital or clinic location. After connecting through [email or web address], patient was verified with two unique identifiers. Patient (or authorized legal field representative/health education) was then informed that this was a Telemedicine visit and being conducted confidentially over secure lines. Methods to assure confidentiality were taken. Patient acknowledged consent and understanding of privacy and security of the Telemedicine visit. The patient agreed to participate. Virtual Urgent Care Pilo Alexander is a 48 year old year old male who presents for evaluation of possible eye infection. Patient presents with red bump to L lower lid with swelling. No drainage, crusting. No hx of stye. Denies vision changes, trauma, headache, fevers, cold symptoms, facial rash, itching. No exposure topink eye. No contact use. REVIEW OF SYSTEMS: See HPI for pertinent positives and negatives. All other ROS reviewed and negative. PAST MEDICAL HISTORY: Past Surgical History: Procedure Laterality Date REMOVAL OF TONSILS, UNDER AGE 12 VASECTOMY 01-28-2016 Social History Tobacco Use Smoking status: Never Smokeless tobacco: Current Types: Snuff Substance Use Topics Alcohol use: Yes Alcohol/week: 10.0 standard drinks of alcohol Types: 10 12 oz of beer per week Vaping/E-Cigarette Use Vaping/E-Cigarette Use Never User Vaping/E-Cigarette Substances Nicotine No Other No Flavoring No THC No Cannabidiol (CBD) No Vaping/E-Cigarette Devices Disposable No Pre-filled or Refillable Cartridge No Refillable Tank No Pre-filled Pod No Patient Active Problem List Diagnosis Panic attacks HTN, goal below 130/80 Mild intermittent asthma without complication Review of patient's allergies indicates: No Known Allergies Current Outpatient Medications Medication Sig Dispense Refill Erythromycin 5 MG/GM Ophthalmic Ointment Instill into eye 4 times a day for 10 days. Apply to affected eye(s) until redness and discharge resolved. 1 g 0 Losartan Potassium 50 MG Oral Tablet (Cozaar) Take 1.5 Tablets by mouth in the morning. 45 Tablet 5 Citalopram Hydrobromide 20 MG Oral Tablet (CeleXA) TAKE 1 TABLET BY MOUTH EVERY MORNING 90 Tablet 1 Albuterol Sulfate HFA 108 (90 Base) MCG/ACT Inhalation Aerosol Solution Inhale 2 Puffs by mouth in the morning and 2 Puffs at noon and 2 Puffs in the evening and 2 Puffs before bedtime. 18 g 2 Current Facility-Administered Medications Medication Dose Route Frequency Provider Last Rate Last Admin Albuterol Sulfate (Proventil) (2.5 MG/3ML) 0.083% inhalation solution 2.5 mg 2.5 mg Nebulizer Once PRN PHYSICAL EXAM: Unable to obtain vitals - Exam within limits of telemedicine visit GENERAL: Patient is alert, no obvious distress, well appearing EYE: + stye to inner L lower lid. Mild adjacent swelling to lower lid. No conjunctival injection. No drainage, crusting. No ecchymosis. PSYCH: Normal behavior, mood. Assessment: Hordeolum externum of left lower eyelid (Primary) - Erythromycin 5 MG/GM Ophthalmic Ointment; Instill into eye 4 times a day for 10 days. Apply to affected eye(s) until redness and discharge resolved. - Advised warm compresses, topical abx ointment - Follow up with PCP or Eye Dr if no better Brandi Donaldson PA-C Virtual Urgent Care [address] [place] [address]. [place] [address] documented in this encounter Plan of Treatment Upcoming Encounters Date Type Department Care Team (Late st Contact Info) Description 12/19/2023 3:00 PM EDT PulmDiagnostic Pulmonary Function Lab, [facility] [address] [facility] [place] [address] [place], [address] 132 [facility] [place] [address] 01/01/2024 10:20 AM EDT Office Visit General Internal Medicine [place] [address] [place] [address] Betty Shin MD [address] [place] [address] Health Maintenance Due Date Last Done Comments Lipid Panel 1975 Pneumococcal Vaccine: Pediatrics (0 to 5 Years) and At-Risk Patients (6 to 64 Years) (1 of 2 - PCV) 1981 HIV Screening 1990 Hepatitis C Screening 1993 Hepatitis B Vaccine (1 of 3 - 19+ 3-dose series) 1994 Colonoscopy 2020 Fecal Occult Blood Test 2020 Sigmoidoscopy 2020 COVID-19 Vaccine (1 - 2022-2 4 season) 2023 Depression Screening 04/05/2023 04/05/2022 *SPIROMETRY ONCE FOR ASTHMA-ADULT 06/27/2023 Influenza Vaccine (FLU shot) (#1) 2024 GFR 04/03/2024 04/03/2023, 12/04/2016 DTaP,Tdap,and Td Vaccines (2 - Td or Tdap) 05/19/2025 05/19/2015 Cologuard 05/30/2025 05/30/2022, 05/22/2022, 05/22/2022 Colorectal Cancer Screening 05/30/2025 Albumin/Creatinine Ratio 04/03/2026 04/03/2023 Diabetes Screening 04/03/2026 04/03/2023 HPV (Gardasil) Vaccine Aged Out No lo nger eligible based on patient's age to complete this topic MENINGOCOCCAL (MENACTRA/MENVEO) Aged Out No longer eligible b ased on patient's age to complete this topic documented as of this encounter Medical Devices Not on filedocumented as of this encounter Visit Diagnoses Diagnosis Hordeolum externum of left lower eyelid- Primary Hordeolum externum documented in this encounter Care Teams Weekend Caregiver Relationship Specialty Start Date End Date Ramy Verdin DO [address] [place] [address] PCP - General Family Medicine 05/19/15 documented as of this encounter
--- OUTSIDE RECORDS SUMMARY | 2023-11-24 21:59 | External Medical Summary | Summary of Care ---
Author Name Unknown Organization [facility] Address [address] [place] [address] Phone [phone] Care Team Providers Care Medical Research Associate Name Role Phone AlejandroRamy azul Primary Care Provider [phone] Reason for Visit * Reason Comments Cough C/o cough along with chest congestion. Mucus is yellow and in large amounts. Has been sick since May. Denies fever, chest pain, SOB. Encounter Details Date Type Department Care Team (Late st Contact Info) Description 08/07/2023 11:40 AM EDT [facility] [place] [address] Pilo Avila DO [address] [place] [address] Acute bronchitis, unspecified organism*; Mild intermittent asthma without complication Allergies No known active allergiesdocumented as of [...] 08/14/2023 Active predniSONE 10 MG Oral Tablet (Deltasone)Indicat ions:Acute bronchitis, unspecified organism 4 tab x 3d, 3tab x 3d, 2tab x 3d, 1tab x 3d 30 Tablet 0 08/07/2023 Active Amoxicillin 500 MG Oral Capsule (Amoxil)Indication s:Chronic frontal sinusitis Take 1 Capsule by mouth in the morning and 1 Capsule at noon and 1 Capsule before bedtime. Do all this for 10 days. 30 Capsule 0 04/03/2023 08/07/2023 Discontinued (Patient preference/d iscontinuati on) Nystatin [id number] UNIT/ML Mouth/Throat SuspensionIndicati ons:Thrush Swish and swallow 5 mL in the morning and 5 mL at noon and 5 mL in the evening and 5 mL before bedtime. For thrush.. 240 mL 1 04/03/2023 08/07/2023 Discontinued (Patient preference/d iscontinuati on) levoFLOXacin 500 MG Oral TabletIndications: Pneumonia of right lower lobe due to infectious organism Take 1 Tablet by mouth in the morning for 10 days. until gone.. 10 Tablet 0 05/21/2023 08/07/2023 Discontinued (Patient preference/d iscontinuati on) Amoxicillin 500 MG Oral Capsule (Amoxil)Indication s:Acute bronchitis, antibiotics not indicated Take 1 Capsule by mouth in the morning and 1 Capsule at noon and 1 Capsule before bedtime. Do all this for 7 days. 21 Capsule 0 06/26/2023 08/07/2023 Discontinued (Patient preference/d iscontinuati on) documented as of this encounter (statuses as [...] Sign Reading Time Taken Comments Blood Pressure 132/92 08/07/2023 11:46 AM EDT Pulse 79 08/07/2023 11:46 AM EDT Temperature 37.1 C (98.7 F) 08/07/2023 11:46 AM E DT Respiratory Rate - - Oxygen Saturation 99% 08/07/2023 11:46 AM EDT Inhaled Oxygen Concentration - - Weight 93.9 kg (207 lb) 08/07/2023 11:46 AM EDT Height - - Body Mass Index 30.57 07/26/2023 3:12 PM EDT documented in this encounter Progress Notes * Pilo Avila, - 08/07/2023 11:42 AM EDT Subjective Pilo Alexander is a 48 year old male. Chief Complaint Patient presents with Cough C/o cough along with chest congestion. Mucus is yellow and in large amounts. Has been sick since May. Denies fever, chest pain, SOB. HPI: Patient presents to the office for evaluation of continued cough, chest congestion. States hasbeen going on since May. Was evaluated for this previously in June and had negative PCR forCOVID-19/RSV/flu. Was treated with course of levofloxacin in May. Looks like was re-treated with amoxicillin in June. Unclear if antibiotics helped much. Still has cough productive of yellow mucus. Feels stuck in his chest and on able to clear. Cough will usually wake him up few times at night. Albuterol HFA helps temporarily. Can hear himself wheezing. No obvious fever/chills. No orthopnea. No chest pain/palpitations. No swelling in his legs. Does carry diagnosis of intermittent asthma. No recent PFTs visible. PMH: Patient Active Problem List Diagnosis Code Panic attacks F41.0 HTN, goal below 130/80 I10 Mild intermittent asthma without complication J45.20 Current Outpatient Medications Medication Sig Dispense Refill [...] BY MOUTH EVERY MORNING 90 Tablet 0 Doxycycline Hyclate 100 MG Oral Capsule Take 1 Capsule by mouth in the morning and 1 Capsule beforebedtime. Do all this for 7 days. Until gone.. 14 Capsule 0 predniSONE 10 MG Oral Tablet (Deltasone) 4 tab x 3d, 3tab x 3d, 2tab x 3d, 1tab x 3d 30 Tablet 0 No current facility-administered medications for this visit. Past Medical History: Diagnosis Date HTN, goal below 140/90 Panic attacks Past Surgical History: Procedure Laterality Date REMOVAL OF TONSILS, UNDER AGE 12 VASECTOMY 01-28-2016 Review of patient's allergies indicates: No Known Allergies Family History Problem Relation Age of Onset Hypertension Mother Cancer Grandmother [...] tobacco: Current Types: Snuff Vaping Use Vaping Use: Never used Substance and Sexual Activity Alcohol use: Yes Alcohol/week: 10.0 standard drinks of alcohol Types: 10 12 oz of beer per week Drug use: No Sexual activity: Yes Partners: Female Other Topics Concern Service Not Asked Blood Transfusions Not Asked Caffeine Concern Not Asked Occupational Exposure Not Asked Hobby Hazards Not Asked Sleep Concern Not Asked Stress Concern Not Asked Weight Concern Not Asked Special Diet Not Asked Back Care Not Asked Exercise Not Asked Bike Helmet Not Asked Seat Belt Yes Self-Exams Not Asked Social History Narrative Originally from [facility]. Came to [employer] for work until he met someone here. [...] Negative for chills, fatigue and fever. HENT: Positive for congestion and postnasal drip. Negative for sore throat and trouble swallowing. Eyes: Negative [...] The patient is not nervous/anxious. Objective BP 132/92 | Pulse 79 | Temp 37.1 C (98.7 F) (Tympanic) | Wt 93.9 kg (207 lb) | SpO2 99% | BMI 30.57 kg/m | BSA 2.14 m Physical Exam Constitutional: General: He is not in acute distress. Appearance: He is not ill-appearing. HENT: Head: Normocephalic and atraumatic. Right Ear: Tympanic membrane, ear canal and external ear normal. Left Ear: Tympanic membrane, ear canal and external ear normal. Nose: Nose normal. No congestion or rhinorrhea. Mouth/Throat: Mouth: Mucous membranes are moist. Pharynx: Oropharynx is clear. Eyes: General: No scleral icterus. Extraocular Movements: [...] No respiratory distress. Breath sounds: No stridor. Wheezing present. No rhonchi or rales. Comments: Does have some prolonged expiratory phase with end-expiratory wheezing bilaterally, both lung ag tympanic to percussion Chest: Chest wall: No tenderness. Abdominal: General: [...] Affect: Mood normal. Behavior: Behavior normal. ASSESSMENT/PLAN: Acute bronchitis, unspecified organism (Primary) - XR CHEST 2 VIEWS - Doxycycline Hyclate 100 MG Oral Capsule; Take 1 Capsule by mouth in the morning and 1 Capsule before bedtime. Do all this for 7 days. Until gone.. - predniSONE 10 MG Oral Tablet (Deltasone); 4 tab x 3d, 3tab x 3d, 2tab x 3d, 1tab x 3d Mild intermittent asthma without complication Plan: Resident seen for continued symptoms of cough, chest congestion, wheezing. Two rounds of antibiotics since the beginning of the year. Still persistent symptoms Based off of exam it is possible to the could have some persistent bronchitis. He was also noted tohave some mild areas of infiltrate on recent MRI abdomen. Explained to patient that would like to check two view chest x-ray today to further evaluate his lung ag Will re-treat with doxycycline 100 mg twice daily for 7 days Start prednisone 10 mg taper. Counseled on common side effects of each medication for which to monitor Continue with albuterol HFA 2 puffs 4 times daily as needed If chest imaging unremarkable could consider updating PFTs to see if asthma regimen needs titration Continue other meds/management Follow Up: Return if symptoms worsen or fail to improve, for Follow up next routine with PCP as scheduled. | For: Follow up next routine with PCP as scheduled | Check-out note: Follow up as needed ifno improvement CXR today Pilo Avial DO documented in this encounter Nursing Notes * Enedina Valladares LPN - 08/07/2023 11:46 AM EDT Chief Complaint Patient presents with Cough C/o cough along with chest congestion. Mucus is yellow and in large amounts. Has been sick since May. Denies fever, chest pain, SOB. documented in this encounter Plan of Treatment Upcoming Encounters Date Type Department Care Team (Late st Contact Info) Description 08/07/2023 12:30 PM EDT Imaging Radiology [facility] [place] [address] [place] [address] Arrived 10/16/2023 2:20 PM EDT Office Visit Sleep Disorders Ctr Did[facility] [place] [address] [facility] [place] [phone] Nohemi Wright DO [address] [facility] [place] [address] 01/01/2024 10:20 AM EDT Office Visit General Internal Medicine [facility] [place] [address] [facility] [place] [address] Betty Shin MD [address] [facility] [place] [address] Pending Results Name Type Priority Associated Diagnoses Date /Time XR CHEST 2 VIEWS Medical Imaging Routine Acute bronchitis, unspecified organism 08/07/2023 12:10 PM EDT Health Maintenance Due Date Last Done Comments [...] this encounter Visit Diagnoses Diagnosis Acute bronchitis, unspecified organism- Primary Mild intermittent asthma without complication Unspecified asthma documented in this encounter Care Teams Medical Research Associate Relationship Specialty Start Date End Date Ramy Verdin DO [address] [place] [address] PCP - General Family Medicine 05/19/15 documented as of this encounter"
--- OUTSIDE RECORDS SUMMARY | 2023-11-24 22:00 | External Medical Summary | Summary of Care ---
Author Name Unknown Organization [facility] Address [address] [place] [address] Phone [phone] Care Team Providers Care Divinity Professor Name Role Phone Ramy Verdin DO Primary Care Provider [phone] Reason for Visit * Reason Onset Date Comments Test Results 06/26/2023 Encounter Details Date Type Department Care Team (Late st Contact Info) Description 06/26/2023 Telephone General Internal Medicine [facility] [place] [address] [facility] [place] [address] Betty Shin MD [address] [facility] [place] [address] Test Results Allergies No known active allergiesdocumented as of this encounter (statuses as of 06/26/2023) Medications Medication Sig Dispensed Refills Start Date End Date Status Citalopram Hydrobromide 20 MG Oral Tablet (CeleXA)Indications: Panic attacks TAKE 1 TABLET BY MOUTH EVERY MORNING 90 Tablet 0 05/01/2023 Active ProAir HFA 108 (90 Base) MCG/ACT Inhalation Aerosol SolutionIndications: Acute bronchitis, antibiotics not indicated Inhale 2 Puffs by mouth 4 times a day as needed for Cough or Wheezing. 18 g 3 06/25/2023 Active Losartan Potassium 50 MG Oral Tablet (Cozaar)Indications: HTN, goal below 140/90 Take 1.5 Tablets by mouth in the morning. 45 Tablet 5 06/25/2023 Active Amoxicillin 500 MG Oral Capsule (Amoxil)Indications: Acute bronchitis, antibiotics not indicated Take 1 Capsule by mouth in the morning and 1 Capsule at noon and 1 Capsule before bedtime. Do all this for 7 days. 21 Capsule 0 06/26/2023 07/03/2023 Active documented as of this encounter (statuses as of 06/26/2023) Active Problems Problem Noted Date Diagnosed Date HTN, goal below 130/80 06/25/2023 Mild intermittent asthma without complication Panic attacks 05/19/2015 documented as of this encounter (statuses as of 06/26/2023) Immunizations Name Administration Dates Next Due TDAP [...] Encounter - Arlet Ospina MED ASSIST - 06/26/2023 9:58 AM EST Patient aware and verbalized understanding. * Telephone Encounter - Arlet Ospina MED ASSIST - 06/26/2023 9:57 AM EST ----- Message from Betty Shin MD sent at 06/26/2023 8:46 AM EST ----- Mg G sent. Amox sent Please make sure he read it and it not call documented in this encounter Plan of Treatment Upcoming Encounters Date Type Department Care Team (Late st Contact Info) Description 07/26/2023 2:30 PM EDT Nurse Only Ancillary Ramesh Sinha [place] [address] [facility] [place] [address] SinhaNurse [facility] Davy Didi [address] [place] [address] 07/26/2023 3:20 PM EDT Office Visit Sleep Disorders Ctr Didi Sin[address] [place] [address] [place] [address] [place] [phone] Nohemi WrightaretDO [address] [place] [address] 01/01/2024 10:20 AM EDT Office Visit General Internal Medicine [facility] [place] [address] [place] [address] [facility] [address] [place] [address] Betty Shin MD [address] [facility] [place] [address] Health Maintenance Due Date Last Done Comments [...] Vaccine (1 - 2022-2 4 season) 2023 Influenza Vaccine (FLU shot) (#1) 2023 Depression Screening 04/05/2023 04/05/2022 GFR 04/03/2024 04/03/2023, 12/04/2016 DTaP,Tdap,and Td Vaccines [...] filedocumented as of this encounter Care Teams Divinity Professor Relationship Specialty Start Date End Date Ramy Verdin DO [facility] [place] [address] PCP - General Family Medicine 05/19/15 documented as of this encounter
--- OUTSIDE RECORDS SUMMARY | 2023-11-24 22:00 | External Medical Summary | Summary of Care ---
Author Name Unknown Organization [facility] Address [address] [facility] [place] [address] Phone [phone] Care Team Providers Care Tipple Supervisor Name Role Phone AlejandroRamy azul Primary Care Provider Encounter Details Date Type Department Care Team (Late st Contact Info) Description 07/27/2023 Telephone Pulmonary Medicine, [facility] [address] [place] [address] Nohemi Wright DO [address] [place] [address] Allergies No known active allergiesdocumented as of this encounter (statuses as of 07/27/2023) Medications Medication Sig Dispensed Refills Start Date End Date Status Citalopram Hydrobromide 20 MG Oral Tablet (CeleXA)Indications:[place] beckie attacks TAKE 1 TABLET BY MOUTH EVERY MORNING 90 Tablet 0 05/01/2023 Active ProAir HFA 108 (90 Base) MCG/ACT Inhalation Aerosol SolutionIndications:Ac [place] bronchitis, antibiotics not indicated Inhale 2 Puffs by mouth 4 times a day as needed for Cough or Wheezing. 18 g 3 06/25/2023 Active Losartan Potassium 50 MG Oral Tablet (Cozaar)Indications:HT N, goal below 140/90 Take 1.5 Tablets by mouth in the morning. 45 Tablet 5 06/25/2023 Active documented as of this encounter (statuses as of 07/27/2023) Active Problems Problem Noted Date Diagnosed Date HTN, goal below 130/80 06/25/2023 Mild intermittent asthma without complication Panic attacks 05/19/2015 documented as of this encounter (statuses as of 07/27/2023) Immunizations Name Administration Dates Next Due TDAP [...] encounter Miscellaneous Notes * Telephone Encounter - Gerald Layton OSA - 07/27/2023 11:00 AM EDT Orders in 07/26 new cpap [employer] documented in this encounter Plan of Treatment Upcoming Encounters Date Type Department Care Team (Late st Contact Info) Description 10/16/2023 2:20 PM EDT Office Visit [facility] Disorders Ctr Didi [place] [address] [place] [phone] Nohemi Wright DO [address] [place] [address] 01/01/2024 10:20 AM EDT Office Visit General Internal Medicine [place] [address] [place] [address] Betty Shin MD [address] [facility] [place] [address] Health Maintenance Due Date Last Done Comments [...] shot) (#1) 2023 Depression Screening 04/05/2023 04/05/2022 *SPIROMETRY ONCE FOR ASTHMA-ADULT 06/27/2023 GFR 04/03/2024 04/03/2023, 12/04/2016 DTaP,Tdap,and Td Vaccines [...] filedocumented as of this encounter Care Teams Tipple Supervisor Relationship Specialty Start Date End Date Ramy Verdin DO [address] [place] [address] PCP - General Family Medicine 05/19/15 documented as of this encounter
--- OUTSIDE RECORDS SUMMARY | 2023-11-24 22:00 | External Medical Summary | Summary of Care ---
Author Name Unknown Organization [facility] Address [address] [place] [address] Phone [phone] Care Team Providers Care Framing Machine Tender Name Role Phone Ramy Verdin Primary Care Provider [phone] Reason for Visit * Reason Comments Follow Up Patient presents for a 2 month follow up. Patient states he has nasal congestion and a productive cough that started this past weekend. Encounter Details Date Type Department Care Team (Late st Contact Info) Description 06/25/2023 10:20 AM EST Office Visit General Internal Medicine [place] [address] [place] [address] Betty Shin MD 200 [facility] [place] [address] HTN, goal below 130/80*; Acute bronchitis, antibiotics not indicated; Mild intermittent asthma without complication; Panic attacks; HTN, goal below 140/90; Encounter for HCV screening test for low risk patient; Upper respiratory tract infection, unspecified type; Need for hepatitis B vaccination Allergies No known active allergiesdocumented as of this encounter (statuses as of 06/26/2023) Medications Medication Sig Dispensed Refills Start Date End Date Status Citalopram Hydrobromide 20 MG Oral Tablet (CeleXA)Indicatio ns:Panic attacks TAKE 1 TABLET BY MOUTH EVERY MORNING 90 Tablet 0 05/01/2023 Active ProAir HFA 108 (90 Base) MCG/ACT Inhalation Aerosol SolutionIndicatio ns:Acute bronchitis, antibiotics not indicated Inhale 2 Puffs by mouth 4 times a day as needed for Cough or Wheezing. 18 g 3 06/25/2023 Active Losartan Potassium 50 MG Oral Tablet (Cozaar)Indicatio ns:HTN, goal below 140/90 Take 1.5 Tablets by mouth in the morning. 45 Tablet 5 06/25/2023 Active Amoxicillin 500 MG Oral Capsule (Amoxil)Indicatio ns:Acute bronchitis, antibiotics not indicated Take 1 Capsule by mouth in the morning and 1 Capsule at noon and 1 Capsule before bedtime. Do all this for 7 days. 21 Capsule 0 06/26/2023 4 Active Losartan Potassium 50 MG Oral Tablet (Cozaar)Indicatio ns:HTN, goal below 140/90 Take 1 Tablet by mouth in the morning. 30 Tablet 5 04/03/2023 4 Discontinued ProAir HFA 108 (90 Base) MCG/ACT Inhalation Aerosol SolutionIndicatio ns:Acute bronchitis, antibiotics not indicated Inhale 2 Puffs by mouth 4 times a day as needed for Cough or Wheezing. 18 g 1 04/03/2023 4 Discontinued(Ref ill) documented as of this encounter (statuses as [...] Sign Reading Time Taken Comments Blood Pressure 146/86 06/25/2023 10:13 AM EST Pulse 70 06/25/2023 10:13 AM EST Temperature 36.1 C (96.9 F) 06/25/2023 10:[address] Respiratory Rate - - Oxygen Saturation 98% 06/25/2023 10:13 AM EST Inhaled Oxygen Concentration - - Weight 92.6 kg (204 lb 1.6 oz) 06/25/2023 10:13 AM EST Height 175.3 cm (5' 9") 06/25/2023 10:13 AM EST Body Mass Index 30.14 06/25/2023 10:13 AM EST documented in this encounter Progress Notes * Betty Shin MD - 06/25/2023 10:28 AM EST Images from the original note were not included. History of Present Illness Pilo Alexander is a 48 year old male that presents for Follow Up (Patient presents for a 2 month follow up. Patient states he has nasal congestion and a productive cough that started this past weekend. ) 48 year old YOmale with PMH as listed below presents here for evaluation for recheck. Acute concern :- -cough Interimmedical history : BP better but still high , tolerating med okay Watching diet and exercise : diet good , active at work but no exercise Routine labs : due for fasting Routine HM : declines all vaccines Chronic medical problem: reviewed and stable Cough This is a new problem. The current episode started in the past 7 days (3 days). The problem has been gradually worsening. The cough is Productive of purulent sputum and productive of sputum. Associated symptoms include nasal congestion, postnasal drip, rhinorrhea, shortness of breath and wheezing. Pertinent negatives include no chest pain, fever or sore throat. The symptoms are aggravated by lying down and exercise. He has tried OTC cough suppressant and a beta-agonist inhaler for the symptoms.The treatment provided mild relief. His past medical history is significant for environmental allergies. There is no history of asthma or COPD. Physical Exam Vitals: 06/25/23 1013 Temp: 36.1 C (96.9 F) Pulse: 70 SpO2: 98% BP: 146/86 BMI: 30.13 BP Readings from Last 3 Encounters: 06/25/23 146/86 04/06/23 140/80 04/03/23 160/104 Physical Exam Constitutional: General: He is not in acute distress. Appearance: Normal appearance. HENT: Head: Normocephalic. Right Ear: Ear canal and external ear normal. Left Ear: Ear canal and external ear normal. Nose: Congestion and rhinorrhea present. Mouth/Throat: Mouth: Mucous membranes are moist. Pharynx: Posterior oropharyngeal erythema present. No oropharyngeal exudate. Cardiovascular: Rate and Rhythm: Normal rate and regular rhythm. Heart sounds: No murmur heard. No gallop. Pulmonary: Effort: Pulmonary effort is normal. Breath sounds: No stridor. No wheezing or rhonchi. Chest: Chest wall: No tenderness. Abdominal: General: There is no distension. Palpations: Abdomen is soft. There is no mass. Tenderness: There is no abdominal tenderness. Musculoskeletal: General: No swelling or tenderness. Cervical back: No rigidity or tenderness. Lymphadenopathy: Cervical: No cervical adenopathy. Neurological: Mental Status: He is alert. I have reviewed the following results: CMP Assessment and Plan HTN, goal below 130/80 Increase losartan 75 mg daily - LIPID PANEL WITH DIRECT LDL IF TG IS HIGH; Future Acute bronchitis, antibiotics not indicated Mucinex bid - ProAir HFA 108 (90 Base) MCG/ACT Inhalation Aerosol Solution; Inhale 2 Puffs by mouth 4 times a day as needed for Cough or Wheezing. - Amoxicillin 500 MG Oral Capsule (Amoxil); Take 1 Capsule by mouth in the morning and 1 Capsule atnoon and 1 Capsule before bedtime. Do all this for 7 days. - sent after PCR came negative Panic attacks HTN, goal below 140/90 - BASIC METABOLIC PANEL; Future - Losartan Potassium 50 MG Oral Tablet (Cozaar); Take 1.5 Tablets by mouth in the morning. Encounter for HCV screening test for low risk patient - HEPATITIS C ANTIBODY SCREEN WITH PROGRESSION TO HEPATITIS C RNA QUANTITATIVE; Future Upper respiratory tract infection, unspecified type - RESPIRATORY PATHOGEN PANEL, PCR; Future - RESPIRATORY PATHOGEN PANEL, PCR Need for hepatitis B vaccination - HEPATITIS B SURFACE ANTIBODY; Future Wrap-Up Time: I spent a total of 30-39 minutes (exact time 35 mins) on the date of service in preparation, delivery, and documentation of the care provided to Pilo Alexander excluding any time spent in the performance of separately billed services. documented in this encounter Nursing Notes * Arlet Ospina MED ASSIST - 06/25/2023 10:16 AM EST Chief Complaint Patient presents with Follow Up Patient presents for a 2 month follow up. Patient states he has nasal congestion and a productive cough that started this past weekend. documented in this encounter Plan of Treatment Upcoming Encounters Date Type Department Care Team (Late st Contact Info) Description 07/26/2023 2:30 PM EDT Nurse Only Ancillary Ramesh Sinha [facility] [address] [facility] [place] [address] Nurse Juanjose Sinha Prac Didi [address] [facility] [place] [address] 07/26/2023 3:20 PM EDT Office Visit Sleep Disorders Ctr Didi Sinha [place] [address] [facility] [place] [address] Nohemi Wright DO [address] [facility] [place] [address] 01/01/2024 10:20 AM EDT Office Visit General Internal Medicine M[place] [address] [facility] [place] [address] Betty Shin MD 200 [facility] [place], [place] [address] Scheduled Orders Name Type Priority Associated Diagnoses Orde r Schedule LIPID PANEL WITH DIRECT LDL IF TG IS HIGH Lab Routine HTN, goal below 130/80 Expected: 07/26/2023, Expires: 06/25/2024 HEPATITIS C ANTIBODY SCREEN WITH PROGRESSION TO HEPATITIS C RNA QUANTITATIVE Lab Routine Encounter for HCV screening test for low risk patient Expected: 07/26/2023, Expires: 06/24/2024 HEPATITIS B SURFACE ANTIBODY Lab Routine Need for hepatitis B vaccination Expected: 07/26/2023, Expires: 06/24/2024 BASIC METABOLIC PANEL Lab Routine HTN, goal below 140/90 Expected: 07/26/2023, Expires: 06/24/2024 Health Maintenance Due Date Last Done Comments [...] Not on filedocumented as of this encounter Procedures Procedure Name Priority Date/Time Associated Diagnosis Comments RESPIRATORY PATHOGEN PANEL, PCR Routine 06/25/2023 3:51 PM EST Upper respiratory tract infection, unspecified type documented in this encounter Results * RESPIRATORY PATHOGEN PANEL, PCR (06/25/2023 3:51 PM EST) Adenovirus by PCR Negative Negative 024 11:43 PM EST LABORATORY [facility] Coronavirus 229E by PCR Negative Negative 06/25/2023 11:43 PM EST LABORATORY [facility] Coronavirus HKU1 by PCR Negative Negative 06/25/2023 11:43 PM EST LABORATORY C Coronavirus NL63 by PCR Negative Negative 06/25/2023 11:43 PM EST LABORATORY [facility] Coronavirus OC43 by PCR Negative Negative 06/25/2023 11:43 PM EST LABORATORY [facility] Coronavirus SARS-CoV-2 by PCR Negative Negative 06/25/2023 11:43 PM EST LABORATORY [facility] Human Metapneumovirus by PCR Negative Negative 06/25/2023 11:43 PM EST LABORATORY [facility] Rhinovirus/Enterovi merly by PCR Negative Negative 06/25/2023 11:43 PM EST LABORATORY [facility] Influenza A Virus by PCR Negative Negative 06/25/2023 11:43 PM EST LABORATORY [facility] Influenza B Virus by PCR Negative Negative 06/25/2023 11:43 PM EST LABORATORY [facility] Parainfluenza Virus 1 by PCR Negative Negative 06/25/2023 11:43 PM EST LABORATORY [facility] Parainfluenza Virus 2 by PCR Negative Negative 06/25/2023 11:43 PM EST LABORATORY [facility] Parainfluenza Virus 3 by PCR Negative Negative 06/25/2023 11:43 PM EST LABORATORY [facility] Parainfluenza Virus 4 by PCR Negative Negative 06/25/2023 11:43 PM EST LABORATORY [facility] Respiratory Syncytial Virus by PCR Negative Negative 06/25/2023 11:43 PM EST LABORATORY [facility] Bordetella pertussis by PCR Negative Negative 06/25/2023 11:43 PM EST LABORATORY [facility] Chlamydia pneumoniae by PCR Negative Negative 06/25/2023 11:43 PM EST LABORATORY [facility] Mycoplasma pneumoniae by PCR Negative Negative 06/25/2023 11:43 PM EST LABORATORY [facility] Bordetella parapertussis by PCR Negative Negative 06/25/2023 11:43 PM EST LABORATORY [facility] Comment: The primers that detect Rhinovirus may cross react with some Enterorviruses. The validation of bronchial specimens, tracheal aspirates, and throats for this assay was developed and performance characteristics determined by [employer]. The validation of alternate specimen types has not been cleared or approved by the U.S. Food and Drug Administration (FDA). It has been determined that such clearance or approval is not necessary. Upper Respiratory Nasopharyngeal swab / Unknown Non-blood Collection / Unknown 06/25/2023 3:51 PM EST 06/25/2023 3:56 PM EST Betty Shin MD LAB MICRO - GENERAL ORDERABLES LABORATORY [facility] [address] [place] [address] documented in this encounter Visit Diagnoses Diagnosis HTN, goal below 130/80- Primary Unspecified essential hypertension Acute bronchitis, antibiotics not indicated Acute bronchitis Mild intermittent asthma without complication Unspecified asthma Panic attacks Panic disorder without agoraphobia HTN, goal below 140/90 Unspecified essential hypertension Encounter for HCV screening test for low risk patient Upper respiratory tract infection, unspecified type Need for hepatitis B vaccination Need for prophylactic vaccination and inoculation against viral hepatitis documented in this encounter Care Teams Framing Machine Tender Relationship Specialty Start Date End Date Ramy Verdin DO [facility] [place] [address] PCP - General Family Medicine 05/19/15 documented as of this encounter
--- OUTSIDE RECORDS SUMMARY | 2023-11-24 22:00 | External Medical Summary | Summary of Care ---
Author Name Unknown Organization [facility] Address [address] [place] [address] Phone [phone] Care Team Providers Care Patent Agent Name Role Phone Cassi Verdin DO Primary Care Provider [phone] Reason for Visit * Reason Comments eRx-Medication Refill Encounter Details Date Type Department Care Team (Late st Contact Info) Description 04/30/2023 [facility] [address] [place] [address] Cassi Verdin DO 200 [facility] [place] [address] Panic attacks Allergies No known active allergiesdocumented as of this encounter (statuses as of 06/02/2023) Medications Medication Sig Dispensed Refills Start Date End Date Status Losartan Potassium 50 MG Oral Tablet (Cozaar)Indication s:HTN, goal below 140/90 Take 1 Tablet by mouth in the morning. 30 Tablet 5 04/03/2023 Active ProAir HFA 108 (90 Base) MCG/ACT Inhalation Aerosol SolutionIndication s:Acute bronchitis, antibiotics not indicated Inhale 2 Puffs by mouth 4 times a day as needed for Cough or Wheezing. 18 g 1 04/03/2023 Active Citalopram Hydrobromide 20 MG Oral Tablet (CeleXA)Indication s:Panic attacks TAKE 1 TABLET BY MOUTH EVERY MORNING 90 Tablet 0 05/01/2023 Active Citalopram Hydrobromide 20 MG Oral Tablet (CeleXA)Indication s:Panic attacks TAKE 1 TABLET BY MOUTH EVERY MORNING 90 Tablet 1 11/06/2022 05/01/2023 Discontinued Nystatin 433709 UNIT/ML Mouth/Throat SuspensionIndicati ons:Thrush Swish and swallow 5 mL in the morning and 5 mL at noon and 5 mL in the evening and 5 mL before bedtime. For thrush.. 240 mL 1 04/03/2023 05/03/2023 documented as of this encounter (statuses as of 06/02/2023) Active Problems Problem Noted Date Diagnosed Date Panic attacks 05/19/2015 documented as of this encounter (statuses as of 06/02/2023) Immunizations Name Administration Dates Next Due TDAP [...] encounter Miscellaneous Notes * Telephone Encounter - Lilia Flood geomorphology teacher - 06/02/2023 11:05 AM EST Received message from [facility] regarding patient needing appointment. Placed call to patient to advise. Pt was agreeable to set up office visit. Patient scheduled for 06/25/2023. Thank you for your assistance Lilia Flood Mushroom Cultivator II [facility] ([facility] (Formerly Telepharm[facility]) 06/02/2023,11:05 AM * Telephone Encounter - Piedad Caldwell [facility] - 05/01/2023 2:59 PM ESTSigned Prescriptions: Disp Refills Citalopram Hydrobromide 20 MG Oral Tablet *90 Tab*0 Sig: TAKE 1 TABLET BY MOUTH EVERY MORNING Authorizing Provider: CASSI VERDIN Ordering User: PIEDAD CALDWELL * Telephone Encounter - Piedad Caldwell RPh - 05/01/2023 2:59 PM EST Please contact patient so that an appointment can be scheduled with his PRIMARY CARE provider. Refill authorized to hold patient over in the mean time. Last Visit: 04/05/2022 (in office), Visit date not found (telemedicine) Next Visit: Visit date not found Piedad Tirado Clinical Pharmacist [facility] (Formerly Telepharm[facility]) [phone] 05/01/2023, 2:59 PM documented in this encounter Plan of Treatment Upcoming Encounters Date Type Department Care Team (Late st Contact Info) Description 06/13/2023 10:00 AM EST PulmDiagnostic Sleep Lab Didi Sinha [address] [place] [address] Bharath, Sleep Med Home Study Didi [address] [place] [address] 06/25/2023 10:20 AM EST Office Visit General Internal Medicine [place] [address] [place] [address] Betty Shin MD [address] [place] [address] 07/26/2023 3:20 PM EDT Office Visit [facility] Disorders Ctr [place] [address] [place] [phone] Nohemi Wright DO [address] [place] [address] Health Maintenance Due Date Last Done Comments Hepatitis B (1 of 3 - 3-dose series) 1975 Lipid Panel 1975 COVID-19 Vaccine (#1) 1975 HIV Screening 1990 Hepatitis C Screening 1993 Colonoscopy 2020 Fecal Occult Blood Test 2020 Sigmoidoscopy 2020 Influenza Vaccine (FLU shot) (#1) 2023 Depression Screening 04/05/2023 04/05/2022 DTaP,Tdap,and Td Vaccines (2 - Td or Tdap) 05/19/2025 05/19/2015 Cologuard 05/30/2025 05/30/2022, 05/22/2022, 05/22/2022 Colorectal Cancer Screening 05/30/2025 Diabetes Screening 04/03/2026 04/03/2023 GARDASIL-HPV IMMUNIZATION SERIES Aged Out No longer eligible b ased on patient's age to complete this topic MENINGOCOCCAL (MENACTRA/MENVEO) Aged Out No longer eligible b ased on patient's age to complete this topic Pneumococcal Vaccine: Pediatrics (0 to 5 Years) and At-Risk Patients (6 to 64 Years) Aged Out No longer eligible b ased on patient's age to complete this topic documented as of this encounter Medical Devices Not on filedocumented as of this encounter Visit Diagnoses Diagnosis Panic attacks Panic disorder without agoraphobia documented in this encounter Care Teams Patent Agent Relationship Specialty Start Date End Date Cassi Verdin DO [facility] [place] [address] PCP - General Family Medicine 05/19/15 documented as of this encounter
--- OUTSIDE RECORDS SUMMARY | 2023-11-24 22:00 | External Medical Summary | Summary of Care ---
Author Name Unknown Organization [facility] Address [address] [facility] [place] [address] Phone [phone] Care Team Providers Care Colorer Hides And Skins Name Role Phone Ramy Veridn DO Primary Care Provider [phone] Encounter Details Date Type Department Care Team (Late st Contact Info) Description 06/28/2023 Orders Only PATIENT PORTAL DO NOT DELETE THIS DEPT USED BY [place] [id number] Allergies No known active allergiesdocumented as of this encounter (statuses as of 06/28/2023) Medications Medication Sig Dispensed Refills Start Date [...] as of this encounter (statuses as of 06/28/2023) Active Problems Problem Noted Date Diagnosed Date HTN, goal below 130/80 06/25/2023 Mild intermittent asthma without complication Panic attacks 05/19/2015 documented as of this encounter (statuses as of 06/28/2023) Immunizations Name Administration Dates Next Due TDAP [...] on file documented as of this encounter Plan of Treatment Upcoming Encounters Date Type Department Care Team (Late st Contact Info) Description 07/26/2023 2:30 PM EDT Nurse Only Ancillary Ramesh Sinha [place] [facility] [place] [address] Bharath Nurse [facility] Prac Didi [facility] [place] [address] 07/26/2023 3:20 PM EDT Office Visit Sleep Disorders Ctr [place] [address] [place] [phone] Nohemi Wright DO [address] [place] [address] 01/01/2024 10:20 AM EDT Office Visit General Internal Medicine [place] [address] [place] [address] Betty Shin MD [address] [place] [address] Health Maintenance Due Date Last Done Comments [...] filedocumented as of this encounter Care Teams Colorer Hides And Skins Relationship Specialty Start Date End Date Ramy Verdin DO [address] [place] [address] PCP - General Family Medicine 05/19/15 documented as of this encounter
--- OUTSIDE RECORDS SUMMARY | 2023-11-24 22:00 | External Medical Summary | Summary of Care ---
Author Name Unknown Organization [facility] Address [address] [facility] [place] [address] Phone [phone] Care Team Providers Care Supply Chain Manager Name Role Phone AlejandroRamy azul Primary Care Provider Reason for Visit * Reason Comments Review Sleep Study WatchPAT Encounter Details Date Type Department Care Team (Latest Contact Info) Description 06/13/2023 10:00 AM EST PulmDiagnostic Sleep Lab [facility]i Sin[facility] [address] [facility] [address] Sinha Sleep Med Home Study [facility] [address] [facility] [address] Obstructive sleep apnea*; Nocturnal hypoxemia Allergies No known active allergiesdocumented as of this encounter (statuses as of 07/25/2023) Medications Medication Sig Dispensed Refills Start Date End Date Status Citalopram Hydrobromide 20 MG Oral Tablet (CeleXA)Indications:Pa beckie attacks TAKE 1 TABLET BY MOUTH EVERY MORNING 90 Tablet 0 05/01/2023 Active documented as of this encounter (statuses as of 07/25/2023) Active Problems Problem Noted Date Diagnosed Date HTN, goal below 130/80 06/25/2023 Mild intermittent asthma without complication Panic attacks 05/19/2015 documented as of this encounter (statuses as of 07/25/2023) Immunizations Name Administration Dates Next Due TDAP [...] as of this encounter Progress Notes * Nohemi Wright DO - 07/25/2023 12:55 PM EDT WatchPAT home sleep apnea test report uploaded, viewable through Media attached to this encounter. Patient has a scheduled appointment to review results. documented in this encounter Plan of Treatment Upcoming Encounters Date Type Department Care Team (Late st Contact Info) Description 07/26/2023 2:30 PM EDT Nurse Only Ancillary Ramesh Sinha [place] [address] [facility] [place] [address] Nurse Bharath [facility] Didi [facility] [address] 07/26/2023 3:20 PM EDT Office Visit Sleep Disorders Ctr Didi Sinha [place] [address] [facility] [place] [phone] Nohemi Wright DO 132 [facility] [place] [address] 01/01/2024 10:20 AM EDT Office Visit General Internal Medicine [place] [address] [place] [address] Betty Shin MD [address] [place] [address] Scheduled Orders Name Type Priority Associated Diagnoses Orde r Schedule TIMED SLEEP STUDY, UNATTEND, HR/O2 SAT/RESP Procedures Routine Snoring Observed sleep apnea Fatigue, unspecified type HTN, goal below 130/80 Ordered: 04/06/2023 Health Maintenance Due Date Last Done Comments [...] as of this encounter Visit Diagnoses Diagnosis Obstructive sleep apnea- Primary Obstructive sleep apnea (adult) (pediatric) Nocturnal hypoxemia Hypoxemia documented in this encounter Care Teams Supply Chain Manager Relationship Specialty Start Date End Date Ramy Verdin DO [address] [place] [address] PCP - General Family Medicine 05/19/15 documented as of this encounter
--- OUTSIDE RECORDS SUMMARY | 2023-11-24 22:00 | External Medical Summary ---
Author Name Unknown Address Unknown Organization K01:LABORATORY [facility] [place] - [address] [facility] [address] Laboratory Report Ordering Provider Test Date Status EMIL MARRERO 06/25/2023 15:51:58 Final Observation Date Value Abnormality Reference (Units ) Status Adenovirus DNA [Presence] in Nasopharynx by JANEEN with non-probe detection 06/25/2023 15:51:58 Negative Negative Final Human coronavirus 229E RNA [Presence] in Nasopharynx by JANEEN with non-probe detection 06/25/2023 15:51:58 Negative Negative Final Human coronavirus HKU1 RNA [Presence] in Nasopharynx by JANEEN with non-probe detection 06/25/2023 15:51:58 Negative Negative Final Human coronavirus NL63 RNA [Presence] in Nasopharynx by JANEEN with non-probe detection 06/25/2023 15:51:58 Negative Negative Final Human coronavirus OC43 RNA [Presence] in Nasopharynx by JANEEN with non-probe detection 06/25/2023 15:51:58 Negative Negative Final SARS-CoV-2 (COVID-19) RNA [Presence] in Nasopharynx by JANEEN with non-probe detection 06/25/2023 15:51:58 Negative Negative Final Human metapneumovirus RNA [Presence] in Nasopharynx by JANEEN with non-probe detection 06/25/2023 15:51:58 Negative Negative Final Rhinovirus+Enterovirus RNA [Presence] in Nasopharynx by JANEEN with non-probe detection 06/25/2023 15:51:58 Negative Negative Final Influenza virus A RNA [Presence] in Nasopharynx by JANEEN with non-probe detection 06/25/2023 15:51:58 Negative Negative Final Influenza virus B RNA [Presence] in Nasopharynx by JANEEN with non-probe detection 06/25/2023 15:51:58 Negative Negative Final Parainfluenza virus 1 RNA [Presence] in Nasopharynx by JANEEN with non-probe detection 06/25/2023 15:51:58 Negative Negative Final Parainfluenza virus 2 RNA [Presence] in Nasopharynx by JANEEN with non-probe detection 06/25/2023 15:51:58 Negative Negative Final Parainfluenza virus 3 RNA [Presence] in Nasopharynx by JANEEN with non-probe detection 06/25/2023 15:51:58 Negative Negative Final Parainfluenza virus 4 RNA [Presence] in Nasopharynx by JANEEN with non-probe detection 06/25/2023 15:51:58 Negative Negative Final Respiratory syncytial virus RNA [Presence] in Nasopharynx by JANEEN with non-probe detection 06/25/2023 15:51:58 Negative Negative Final Bordetella pertussis.pertussis toxin promoter region [Presence] in Nasopharynx by JANEEN with non-probe detection 06/25/2023 15:51:58 Negative Negative Final Chlamydophila pneumoniae DNA [Presence] in Nasopharynx by JANEEN with non-probe detection 06/25/2023 15:51:58 Negative Negative Final Mycoplasma pneumoniae DNA [Presence] in Nasopharynx by JANEEN with non-probe detection 06/25/2023 15:51:58 Negative Negative Final Bordetella parapertussis [id number] DNA [Presence] in Nasopharynx by JANEEN with non-probe detection 06/25/2023 15:51:58 Negative Negative Final
The primers that detect Rhinovirus may cross react with some Enterorviruses. The validation of bronchial specimens, tracheal aspirates, and throats for this assay was developed and performance characteristics determined by [employer]. The validation of alternate specimen types has not been cleared or approved by the U.S. Food and Drug Administration (FDA). It has been determined that such clearance or approval is not necessary. Performing Location [facility] [place] [facility] [address] [facility] [address] [facility] [address]
--- OUTSIDE RECORDS SUMMARY | 2023-11-24 22:00 | External Medical Summary | Summary of Care ---
Author Name Unknown Organization [facility] Address [address] [facility] [place] [address] Phone [phone] Care Team Providers Care Hair Specialist Name Role Phone Ramy Verdin Primary Care Provider [phone] Reason for Visit * Reason Comments Follow Up Review Sleep Study Watchpat Encounter Details Date Type Department Care Team (Late st Contact Info) Description 07/26/2023 3:20 PM EDT Office Visit Sleep Disorders Ctr [facility] [place] [address] [place] [phone] Nohemi Wright DO [address] [place] [id number] Obstructive sleep apnea*; Nocturnal hypoxemia; Fatigue, unspecified type; HTN, goal below 130/80 Allergies No known active allergiesdocumented as of this encounter (statuses as of 07/26/2023) Medications Medication Sig Dispensed Refills Start Date End Date Status Citalopram Hydrobromide 20 MG Oral Tablet (CeleXA)Indications:Pa beckie attacks TAKE 1 TABLET BY MOUTH EVERY MORNING 90 Tablet 0 05/01/2023 Active ProAir HFA 108 (90 Base) MCG/ACT Inhalation Aerosol SolutionIndications:Ac chet bronchitis, antibiotics not indicated Inhale 2 Puffs by mouth 4 times a day as needed for Cough or Wheezing. 18 g 3 06/25/2023 Active Losartan Potassium 50 MG Oral Tablet (Cozaar)Indications:HT N, goal below 140/90 Take 1.5 Tablets by mouth in the morning. 45 Tablet 5 06/25/2023 Active documented as of this encounter (statuses as of 07/26/2023) Active Problems Problem Noted Date Diagnosed Date HTN, goal below 130/80 06/25/2023 Mild intermittent asthma without complication Panic attacks 05/19/2015 documented as of this encounter (statuses as of 07/26/2023) Immunizations Name Administration Dates Next Due TDAP [...] Sign Reading Time Taken Comments Blood Pressure 138/82 07/26/2023 3:12 PM EDT Pulse 76 07/26/2023 3:12 PM EDT Temperature - - Respiratory Rate 16 07/26/2023 3:12 PM EDT Oxygen Saturation 99% 07/26/2023 3:12 PM EDT Inhaled Oxygen Concentration - - Weight 92.5 kg (204 lb) 07/26/2023 3:12 PM EDT Height 175.3 cm (5' 9") 07/26/2023 3:12 PM EDT Body Mass Index 30.13 07/26/2023 3:12 PM EDT documented in this encounter Patient Instructions * Patient Instructions* Nohemi Wright, DO - 07/26/2023 3:42 PM EDT New CPAP: - The medical supply [employer] will contact you to schedule set-up. (You may also hear from a group called [employer], which coordinates with the local medical supply companies.) - The medical supply company will fit you with a mask and provide the machine and all supplies, andgo over how to use, clean, etc. You will need to clean and replace supplies as directed by the medical supply [employer]. - Once you have CPAP, use it whenever sleeping. Minimum usage requirements for insurance purposes are at least 4 hours per day, on at least 70% of days. Per Medicare criteria (which many other insurance plans also follow), you need to meet that for a 30-day period within the first 90 days that you have the CPAP. - We will plan a follow up appointment for at least 30 days after you start using CPAP. We will seehow you are doing with the CPAP, and review data from your machine that tells us how long you are using it each day, as well as how well it is working to treat your sleep apnea (the CPAP machine keeps track of the number of pauses in breathing while you are wearing it). Depending on how things lookat that point, we may adjust settings to help the CPAP be more comfortable or work the best for you. Additional Recommendations for sleep apnea: - Plan to get enough sleep at night (most adults do best with 7-8 hours a night), and use your CPAP(once you have it) whenever sleeping. - Exercise daily. Aim for 30 minutes per day of moderate-intensity exercise (enough to get your heart rate up and break out into a light sweat). - Losing weight can reduce the severity of sleep apnea, and may reduce the pressure of CPAP that isneeded to treat your sleep apnea. - Avoid substances that suppress the central nervous system or the drive to breathe. This includes opiate pain medicines and excessive alcohol. - Don't drive when you are sleepy/drowsy! If you become drowsy while driving, car repairer pullman, take a quick nap or get some caffeine, or get someone else to drive. documented in this encounter Progress Notes * Nohemi Wright DO - 07/26/2023 3:17 PM EDT Sleep Medicine Follow-Up HISTORY: Pilo Alexander is a 48 year old male seen today for follow up after completing sleep testing. Patient was seen on 04/06/23 with loud snoring, witnessed apneas, frequent nighttime awakenings (about 5x/night). [place] was 7, FOSQ 33. Hx HTN, anxiety. Patient reports no significant change in sleep or overall health in the interim. On the night of the study, he slept pretty well. WatchPAT home sleep apnea test results: Date: 07/03/23 Technically valid sleep time: 7 hours 49 minutes pAHI (3%): 76.7 /hour pAHI (4%): 68.5 /hour SpO2 quin: 67% Time SpO2 <89%: 205.7 minutes Patient Active Problem List Diagnosis Code Panic attacks F41.0 HTN, goal below 130/80 I10 Mild intermittent asthma without complication J45.20 Outpatient Medications Marked as Taking for the 07/26/23 encounter (Office Visit) with Nohemi Wright DO Medication Sig Losartan Potassium 50 MG Oral Tablet (Cozaar) Take 1.5 Tablets by mouth in the morning. ProAir HFA 108 (90 Base) MCG/ACT Inhalation Aerosol Solution Inhale 2 Puffs by mouth 4 times a day as needed for Cough or Wheezing. Citalopram Hydrobromide 20 MG Oral Tablet (CeleXA) TAKE 1 TABLET BY MOUTH EVERY MORNING PHYSICAL EXAM: Filed Vitals: 07/26/23 1512 BP: 138/82 Pulse: 76 Resp: 16 SpO2: 99% Weight: 92.5 kg (204 lb) Height: 1.753 m (5' 9") General: alert, no acute distress Head: NC/AT Lungs: normal respiratory effort Neuro: speech clear and appropriate ASSESSMENT/PLAN: Obstructive sleep apnea - severe by AHI criteria, associated with nocturnal hypoxemia, HTN - treatment options discussed, particularly PAP titration vs autoCPAP; also briefly mentioned oral appliance therapy and surgical tx including Inspire. - Will begin autotitrating CPAP at 5-20 cmH2O. DME: patient chooses [employer]. CPAP machine, supplies, and mask fitting ordered. - Patient was encouraged to use CPAP whenever sleeping, including with any naps. Minimum usage requirement of at least 4 hours a night on 70% of nights was reviewed. - Follow up to evaluate tolerance, adherence, and efficacy of PAP treatment. Follow-up with Sleep Medicine in 2 months. Nohemi Wright DO documented in this encounter Nursing Notes * Wendy Will LPN - 07/26/2023 3:14 PM EDT Chief Complaint Patient presents with Follow Up Review Sleep Study Watchpat documented in this encounter Plan of Treatment Upcoming Encounters Date Type Department Care Team (Late st Contact Info) Description 10/16/2023 2:20 PM EDT [facility] [address] [place] [id number] Nohemi Wright DO [address] [place] [address] 01/01/2024 10:20 AM EDT Office Visit General Internal Medicine [facility] [address] [facility] [place] [address] Betty Shin MD [address] [place] [address] Health Maintenance Due Date Last Done Comments [...] sleep apnea (adult) (pediatric) Nocturnal hypoxemia Hypoxemia Fatigue, unspecified type HTN, goal below 130/80 Unspecified essential hypertension documented in this encounter Care Teams Hair Specialist Relationship Specialty Start Date End Date Ramy Verdin DO [address] [place] [address] PCP - General Family Medicine 05/19/15 documented as of this encounter
--- OUTSIDE RECORDS SUMMARY | 2023-11-24 22:00 | External Medical Summary | Summary of Care ---
Author Name Unknown Organization [facility] Address [address] [place] [facility] [place] [place] [address] Phone [phone] Care Team Providers Care Cement Railroad Car Loader Name Role Phone Ramy Verdin Primary Care Provider Reason for Visit * Reason Onset Date Comments Blood Pressure Check Blood Pressure Check 07/26/2023 Encounter Details Date Type Department Care Team (Late st Contact Info) Description 07/26/2023 2:30 PM EDT Nurse Only [facility]illary [place] [address] [facility] [address] Bharath Nurse [facility] [address] [place] [address] Blood Pressure Check; Blood Pressure Check Allergies No known active allergiesdocumented as of this encounter (statuses as of 07/26/2023) Medications Medication Sig Dispensed Refills Start Date End Date Status Citalopram Hydrobromide 20 MG Oral Tablet (CeleXA)Indications:Pa beckie attacks TAKE 1 TABLET BY MOUTH EVERY MORNING 90 Tablet 0 05/01/2023 Active ProAir HFA 108 (90 Base) MCG/ACT Inhalation Aerosol SolutionIndications:Ac [place] bronchitis, antibiotics not indicated Inhale 2 Puffs [...] Time Taken Comments Blood Pressure 138/82 07/26/2023 2:36 PM EDT Pulse 76 07/26/2023 2:36 PM EDT Temperature - - Respiratory Rate - - Oxygen Saturation 99% 07/26/2023 2:36 PM EDT Inhaled Oxygen Concentration - - Weight - - Height - - Body Mass Index - - documented in this encounter Progress Notes * Ayla Fernandez LPN - 07/26/2023 2:38 PM EDT Pilo Alexander presented for blood pressure check per provider orders. The blood pressure was obtained using the left arm in the sitting position using a adult large cuff. The results were charted in [facility]. BP Readings from Last 3 Encounters: 07/26/23 138/82 06/25/23 146/86 04/06/23 140/80 BP 138/82 | Pulse 76 | SpO2 99% Patient denies headache, pressure in head, dizziness, lightheadedness, chest discomfort, focal neurological symptoms, change in vision, nose bleeds. Did patient take medications today? Yes Patient was instructed to follow-up with their primary care provider. documented in this encounter Plan of Treatment Upcoming Encounters Date Type Department Care Team (Late st Contact Info) Description 07/26/2023 3:20 PM EDT Office Visit Sleep Disorders Ctr [facility] [address] [place] [phone] WrightNohemi ZoeDO [address] [place] [address] 01/01/2024 10:20 AM EDT Office Visit General Internal Medicine [facility] [address] [facility] [place] [address] Betty Shin MD [address] [facility] [place] [address] Scheduled Orders Name Type Priority Associated Diagnoses Orde r Schedule BLOOD PRESSURE Procedures Routine HTN, goal below 130/80 Ordered: 07/26/2023 Health Maintenance Due Date Last Done Comments [...] as of this encounter Visit Diagnoses Diagnosis HTN, goal below 130/80- Primary Unspecified essential hypertension documented in this encounter Care Teams Cement Railroad Car Loader Relationship Specialty Start Date End Date Ramy Verdin DO [address] [place] [address] PCP - General Family Medicine 05/19/15 documented as of this encounter"
--- OUTSIDE RECORDS SUMMARY | 2023-11-24 22:00 | External Medical Summary | Summary of Care ---
Author Name Unknown Organization [facility] Address [address] [place] [facility] [place] [place] [address] Phone [phone] Care Team Providers Care Supervisor Fish Hatchery Name Role Phone Ramy Verdin DO Primary Care Provider Encounter Details Date Type Department Care Team (Late st Contact Info) Description 07/31/2023 Telephone Family Practice [facility] [place] [address] [place] [address] Ramy Verdin DO [address] [place] [address] Allergies No known active allergiesdocumented as of this encounter (statuses as of 07/31/2023) Medications Medication Sig Dispensed Refills Start Date End Date Status Citalopram Hydrobromide 20 MG Oral Tablet (CeleXA)Indications:Pa beckie attacks TAKE 1 TABLET BY MOUTH EVERY MORNING 90 Tablet 0 05/01/2023 Active ProAir HFA 108 (90 Base) MCG/ACT Inhalation Aerosol SolutionIndications:Ac [place] bronchitis, antibiotics not indicated Inhale 2 Puffs by mouth 4 times a day as needed for Cough or Wheezing. 18 g 3 06/25/2023 Active Losartan Potassium 50 MG Oral Tablet (Cozaar)Indications:HT N, goal below 140/90 Take 1.5 Tablets by mouth in the morning. 45 Tablet 5 06/25/2023 Active documented as of this encounter (statuses as of 07/31/2023) Active Problems Problem Noted Date Diagnosed Date HTN, goal below 130/80 06/25/2023 Mild intermittent asthma without complication Panic attacks 05/19/2015 documented as of this encounter (statuses as of 07/31/2023) Immunizations Name Administration Dates Next Due TDAP [...] encounter Miscellaneous Notes * Telephone Encounter - Padmini Velarde PHARM Tech - 07/31/2023 10:38 AM EDT Pt calling to request proair inhaler. Informed pt that RX is available at their pharmacy. Pt verbalized understanding and stated they will check with their pharmacy regarding this medication. ThanksPadmini Power Barker Operator [facility] 07/31/2023,10:38 AM documented in this encounter Plan of Treatment Upcoming Encounters Date Type Department Care Team (Late st Contact Info) Description 10/16/2023 2:20 PM EDT Office Visit Sleep Disorders Ctr [facility] [place] [address] [place] [phone] Nohemi Wright DO [address] [place] [address] 01/01/2024 10:20 AM EDT Office Visit General Internal Medicine [place] [address] [place] [address] Betty Shin MD [address] [facility] [place] [address] Health Maintenance Due Date Last Done Comments [...] filedocumented as of this encounter Care Teams Supervisor Fish Hatchery Relationship Specialty Start Date End Date Ramy Verdin DO [address] [place] [address] PCP - General Family Medicine 05/19/15 documented as of this encounter
[2023-11-24] MEDS: GLUCAGON 1 ML IV ONE (22:19)
--- NOTE | 2023-11-24 22:25 | Emergency Department Note ---
Impression & Plan Esophageal obstruction due to food impaction, Inability to swallow ED Provider Note NAME: SCAR JACKMAN AGE: 48 SEX: M : 1975 ARRIVES VIA: Walk-In INFORMANT: Patient ED PROVIDER(S): Joe Smith DO CHIEF COMPLAINT: Unable to swallow HPI: Patient is a 48-year-old male who presents the ER as he was eating him and beans. He notes he swallowed and since then he feels it stuck in his throat. He is unable to get anything else down. He notes he had things get stuck before but never this bad. He denies any headache or change in vision. No chest pain or shortness of breath. No dysuria urgency or frequency. He cannot tolerate his secretions. No previous scopes. ADDITIONAL HISTORY OBTAINED: Per HPI Chronic Medical/Social Conditions Affecting Care: Per HPI PAST MEDICAL HISTORY:See Below PAST SURGICAL HISTORY:See Below FAMILY HISTORY:See Below SOCIAL HISTORY:See Below HOME MEDICATIONS:See Below ALLERGIES:See Below VITALS:See Below PHYSICAL EXAMINATION: GENERAL: Sitting up in bed, alert, well appearing, well nourished, no distress, non-toxic, holding a vomit bag and spitting into it EYE EXAM: normal conjunctiva. OROPHARYNX:mucous membranes are moist NECK: supple, no nuchal rigidity, no adenopathy, non-tender LUNGS: Clear to auscultation. Normal chest wall mechanics HEART: no murmurs, S1 normal and S2 normal ABDOMEN: abdomen soft, non-tender, normo-active bowel sounds, no masses, no rebound or guarding. UPPER EXTREMITIES: upper extremities are grossly normal. LOWER EXTREMITIES: No pitting edema. NEURO EXAM: Normal sensorium, cranial nerves II-XII grossly intact, normal speech, no gross weakness of arms, no gross weakness of legs. MEDICAL DECISION MAKING: Patient is a 48-year-old male who presents ER unable to handle his secretions after eating ham and beans and feeling get stuck in his throat. IV was established blood work was obtained. He was given IV fluids glucagon with no improvement. He was able to bring up 2 pieces of beans while in the ER. Labs show no significant leukocytosis or anemia. BMP on LFTs bilirubin was unremarkable. Patient was updated bedside. Discussed with gastroenterology and patient was taken to the OR for endoscopy. Please see GIs note for further treatment. Consults/Care Managements Discussions: Per MDM Triage Nursing notes reviewed. Limited review of prior medical records performed Vital Signs: reviewed and remarkable for no significant abnormalities Differential diagnosis: Cardiac ischemia, aortic dissection, pulmonary embolism, pneumothorax, pneumonia, pericarditis, myocarditis, esophageal rupture, GERD, cholecystitis, pancreatitis, musculoskeletal, as well as other pathologies. ER treatment provided: See below Diagnostics interpreted by me include EKG and cardiac monitoring as listed below: -Cardiac Monitoring: An order was placed for continuous cardiac monitoring. The monitor shows a rate of 80 with sinus rhythm. -ECG: none -Laboratory studies:Interpreted by me as stated above in MDM and shown below. Imaging studies: Xrays: As interpreted by me:none CTs show: none Procedures:none Critical Care: None Past Med/Surg History Problem List (Updated 11/25/23 @ 00:35 by Joe Smith DO) Inability to swallow (Acute) Esophageal obstruction due to food impaction (Acute) Carpal tunnel syndrome (Chronic) Hypertension (Acute) Lightheadedness (Acute) Social History Smoking Status: Never smoker Preferred Language: Nepalese Feels Safe at Home: Yes Allergies Allergies Allergy/AdvReac Type Severity Reaction Status Date / Time No Known Allergies Allergy Verified 11/24/23 23:32 Home Meds Home Medications Medication Instructions Recorded Confirmed albuterol sulfate 90 mcg/actuation 1 - 2 puff inhalation DIRECTED 11/24/23 11/24/23 aerosol inhaler PRN Shortness Of Breath Or Wheezing citalopram 20 mg tablet 20 mg PO QAM 11/24/23 11/24/23 losartan 50 mg tablet 75 mg PO QAM 11/24/23 11/24/23 Results & Data (ED) Vital Signs Vital Signs - 24 hr 11/24/23 22:00 11/24/23 22:23 11/24/23 23:03 Temperature 36.4 C L Temperature Source Temporal Artery Scan Pulse Rate 88 Pulse Rate [Left Apical] 94 H Respiratory Rate 18 15 Respiratory Effort / Characteristics Non-Labored Spontaneous Non-Labored Spontaneous Respiratory Depth Normal Normal Respiratory Pattern Regular Blood Pressure 132/82 Blood Pressure [Right Arm] 137/85 Blood Pressure Mean 98 Blood Pressure Mean [Right Arm] 102 Pulse Oximetry 97 94 95 Oxygen Delivery Method Room Air Room Air Room Air Sepsis Recent Fever Within 48 Hours No Sepsis New/Unexplained Change in Mental Status No Sepsis Action Taken by Nursing No Action Required 11/25/23 00:08 Temperature Temperature Source Pulse Rate Pulse Rate [Left Apical] 85 Respiratory Rate 16 Respiratory Effort / Characteristics Non-Labored Spontaneous Respiratory Depth Normal Respiratory Pattern Regular Blood Pressure Blood Pressure [Right Arm] 129/85 Blood Pressure Mean Blood Pressure Mean [Right Arm] 99 Pulse Oximetry 95 Oxygen Delivery Method Room Air Sepsis Recent Fever Within 48 Hours Sepsis New/Unexplained Change in Mental Status Sepsis Action Taken by Nursing Laboratory Data 11/24/23 22:21 11/24/23 22:21 Lab Results 11/24/23 11/24/23 Range/Units 22:21 22:56 WBC 6.56 (4.8-10.8) K/ul RBC 5.03 (4.70-6.10) M/uL Hgb 15.5 (14.0-18.0) g/dl Hct 46.0 (42.0-52.0) % MCV 91.5 (80.0-100.0) fL MCH 30.8 (25.0-34.0) pg MCHC 33.7 (32.0-36.0) g/dL RDW Std Deviation 40.8 (36.4-46.3) fL RDW Coeff of Nehemiah 12.2 (11.5-14.5) % Plt Count 286 (130-400) K/uL MPV 9.6 (9.4-12.4) fL Immature Gran % (Auto) 0.3 % Neut % (Auto) 44.0 % Lymph % (Auto) 37.0 % [place] % (Auto) 9.0 % Eos % (Auto) 8.8 % Baso % (Auto) 0.9 % Neut # (Auto) 2.88 (1.40-6.50) K/uL Lymph # (Auto) 2.43 (1.20-3.40) K/uL [place] # (Auto) 0.59 (0.11-0.59) K/uL Eos # (Auto) 0.58 H (0.00-0.50) K/uL Baso # (Auto) 0.06 (0.00-0.20) K/uL Immature Gran # (Auto) 0.02 (0.01-0.20) K/uL Sodium 138 (136-145) mmol/L Potassium 3.9 (3.5-5.1) mmol/L Chloride 102 (98-107) mmol/L Carbon Dioxide 25 (21-32) mmol/L Anion Gap 11 (3-11) BUN 12 (6-23) mg/dl Creatinine 0.90 (0.6-1.4) mg/dl Est Cr Clr Drug Dosing 113.8 ml/min Est GFR ( Amer) 116.6 ml/min Est GFR (Non-Af Amer) 100.6 ml/min BUN/Creatinine Ratio 13.3 (10-20) Glucose 80 (70-99(Fasting)) mg/dl POC Glucose 92 (70-99) mg/dl Calcium 8.8 (8.6-10.3) mg/dl Total Bilirubin 0.5 (0.2-1.0) mg/dl AST 23 (13-39) U/L ALT 15 (7-52) U/L Alkaline Phosphatase 64 (34-104) U/L Total Protein 7.8 (6.0-8.3) gm/dl Albumin 4.8 (3.4-5.0) gm/dl Globulin 3.0 (2.5-4.0) gm/dl Albumin/Globulin Ratio 1.6 (0.9-2) Administered Medications Discontinued Medications Glucagon (Glucagen) 1 mls @ 1 mls/min IV ONE ONE Stop: 11/24/23 22:09 Last Admin: 11/24/23 22:19 Dose: 1 mls/min Documented By: BMK Discharge Plan Visit Data Chief Complaint: Food Bolus Stated Complaint: VOMITING, CAN'T KEEP ANYTHING DOWN ED Provider: Joe Smith Discharge Problem: Esophageal obstruction due to food impaction, Inability to swallow Patient Disposition: Being Evaluated by Surgeon Discharge Instructions Interventions: ED Discharge Assessment Last Done: 11/25/23 00:30 Forms Stand Alone Forms: [facility] Prescriptions Prescriptions: No Action losartan 50 mg tablet 75 mg PO QAM citalopram 20 mg tablet 20 mg PO QAM albuterol sulfate 90 mcg/actuation HFA aerosol inhaler 1 - 2 puff INHALATION DIRECTED PRN (Reason: Shortness Of Breath Or Wheezing) Referrals Referrals: Ramy Verdin, [Primary Care Provider] -
[2023-11-24 22:50] LABS: Basophils # (auto) 0.06 K/uL (0.00-0.20); Basophils % (auto) 0.9 %; Eosinophils # (auto) 0.58 K/uL (0.00-0.50); Eosinophils % (auto) 8.8 %; Hemoglobin 15.5 g/dl (14.0-18.0); Immature Granulocytes # (auto) 0.02 K/uL (0.01-0.20); Immature Granulocytes % (auto) 0.3 %; Lymphocytes # (auto) 2.43 K/uL (1.20-3.40); Mean Corpuscular Hemoglobin 30.8 pg (25.0-34.0); Mean Corpuscular Hgb Conc 33.7 g/dL (32.0-36.0); Mean Corpuscular Volume 91.5 fL (80.0-100.0); Mean Platelet Volume 9.6 fL (9.4-12.4); Monocytes # (auto) 0.59 K/uL (0.11-0.59); Neutrophils # (auto) 2.88 K/uL (1.40-6.50); Platelet Count 286 K/uL (130-400); RDW Coefficient of Variation 12.2 % (11.5-14.5); RDW Standard Deviation 40.8 fL (36.4-46.3); Red Blood Count 5.03 M/uL (4.70-6.10); White Blood Count 6.56 K/ul (4.8-10.8)
[2023-11-24 23:01] LABS: Albumin Globulin Ratio 1.6 (0.9-2); Albumin Level 4.8 gm/dl (3.4-5.0); BUN Creatinine Ratio 13.3 (10-20); Bilirubin,Total 0.5 mg/dl (0.2-1.0); Calcium 8.8 mg/dl (8.6-10.3); Creatinine Clr Calc Pharmacy 113.8 ml/min; Est GFR (African American) 116.6 ml/min; Est GFR (Non-African American) 100.6 ml/min; Potassium 3.9 mmol/L (3.5-5.1); Total Protein 7.8 gm/dl (6.0-8.3)
--- NOTE | 2023-11-24 23:53 | Anesthesiology Consultation ---
Date of Service November 24, 2023 Assessment & Plan Chart Review Chart Review: Acceptable Risk for Surgery and Patient NOT seen in Pre Admission Testing Consults Requested none History Height/Weight Height: 5 ft 9 in Weight: 94.3 kg Allergies Allergy/AdvReac Type Severity Reaction Status Date / Time No Known Allergies Allergy Verified 11/24/23 23:32 Medications Home Medications Medication Instructions Recorded Confirmed Last Taken albuterol sulfate 90 mcg/actuation 1 - 2 puff inhalation DIRECTED 11/24/23 11/24/23 Unknown aerosol inhaler PRN Shortness Of Breath Or Wheezing citalopram 20 mg tablet 20 mg PO QAM 11/24/23 11/24/23 11/24/23 losartan 50 mg tablet 75 mg PO QAM 11/24/23 11/24/23 11/24/23 Social History Smoking Status: Never smoker Physical Exam Vital Signs Last Vital Signs Temp 36.4 C L 11/24/23 22:00 Pulse 94 H 11/24/23 22:23 Resp 15 11/24/23 22:23 BP 137/85 11/24/23 22:23 Pulse Ox 95 11/24/23 23:03 O2 Del Method Room Air 11/24/23 23:03 Testing Laboratory Results 11/24/23 22:21 11/24/23 22:21 11/24/23 22:56 POC Glucose 92
[2023-11-24] MEDS ORDERED: ATROPINE SULFATE 0.1 MG/ML 10ML SYR IV PRN (23:54)
[2023-11-24] MEDS ORDERED: fentaNYL citrate PF 100 MCG/2 ML VIAL IV PRN (23:54)
[2023-11-24] MEDS ORDERED: ONDANSETRON INJ 2 MG/ML 2 ML VIAL IV PRN (23:54)
[2023-11-24] MEDS ORDERED: ePHEDrine sulfate 50 MG/ML AMP IV PRN (23:54)
[2023-11-24] MEDS ORDERED: ROCURONIUM BROMIDE 10 MG/ML 5 ML VIAL IV ONE (23:59)
[2023-11-24] MEDS ORDERED: fentaNYL citrate PF 100 MCG/2 ML VIAL ONE (23:59)
[2023-11-24] MEDS ORDERED: ONDANSETRON INJ 2 MG/ML 2 ML VIAL ONE (23:59)
[2023-11-24] MEDS ORDERED: SUCCINYLCHOLINE CHLORIDE 20 MG/ML 10 ML VIAL IV ONE (23:59)
[2023-11-24] MEDS ORDERED: LIDOCAINE 2% 2 ML VIAL/AMP(20MG/ML) INFIL ONE (23:59)
[2023-11-24] MEDS ORDERED: PROPOFOL IV EMULSION 10 MG/ML 20 ML VIAL IV ONE (23:59)
--- NOTE | 2023-11-25 00:42 | History & Physical Report ---
Date of Service November 25, 2023 Assessment & Plan (1) Esophageal obstruction due to food impaction: Plan: 48 year old man with a food impaction. procedure and risks for EGD with removal of food discussed. He agrees History of Present Illness Chief Complaint: Food impaction Primary Care Provider: Ramy Verdin, 48 year old man eating ham and beans today and food got stuck. He has had trouble swallowing before but not to this extent. he does have some heartburn Allergies Allergy/AdvReac Type Severity Reaction Status Date / Time No Known Allergies Allergy Verified 11/24/23 23:32 Home Medications Medication Instructions Recorded Confirmed Type albuterol sulfate 90 mcg/actuation 1 - 2 puff inhalation DIRECTED 11/24/23 11/24/23 History aerosol inhaler PRN Shortness Of Breath Or Wheezing citalopram 20 mg tablet 20 mg PO QAM 11/24/23 11/24/23 History losartan 50 mg tablet 75 mg PO QAM 11/24/23 11/24/23 History Past Med/Surg History Problem List Inability to swallow (Acute) Esophageal obstruction due to food impaction (Acute) Carpal tunnel syndrome (Chronic) Hypertension (Acute) Lightheadedness (Acute) Social History Smoking Status: Never smoker Preferred Language: Brazilian Feels Safe at Home: Yes Review of Systems All systems reviewed & are unremarkable except as noted in HPI & below Physical Exam Constitutional: WD/WN, vitals as above Neck: trachea midline, no thyromegaly Respiratory: normal respiratory effort, lungs clear to auscultation Cardiovascular: RRR, no murmur, no edema Gastrointestinal (Abdomen): normal bowel sounds, soft, nontender, no hepatosplenomegaly ASA Classification ASA ASA2E Results & Data Vital Signs (Past 12 Hours) Vital Signs Temp Pulse Pulse Resp BP BP Pulse Ox 11/25/23 00:08 85 16 129/85 95 11/24/23 23:03 95 11/24/23 22:23 94 H 15 137/85 94 11/24/23 22:00 36.4 C L 88 18 132/82 97 O2 Del Method 07/21/24 00:08 Room Air 11/24/23 23:03 Room Air 11/24/23 22:23 Room Air 11/24/23 22:00 Room Air
[2023-11-25] MEDS: ALBUT/IPRATROP 3MG/0.5MG NEB 3 ML VIAL ONE (01:45)
--- NOTE | 2023-11-25 01:52 | GI REPORT ---
[facility] Patient: SCAR JACKMAN : 1975 Sex at : Male Age: 48 Years Procedure: Upper GI endoscopy Date: 11/25/2023 Attending Physician: Andrea Lopez MD Referring MD: Referred Self Indications: - Removal of foreign body in the esophagus Medications: - General Anesthesia - See the Anesthesia note for documentation of the administered medications Complications: - No immediate complications. Estimated Blood Loss: - Estimated blood loss: None. Procedure: - ASA Grade Assessment: II - A patient with mild systemic disease. - The egd scope was introduced through the mouth and advanced to the second part of the duodenum. - The upper GI endoscopy was performed with moderate difficulty due to presence of food. - The patient tolerated the procedure well. Findings: - The entire examined stomach was normal. - The examined duodenum was normal. - Food was found in the entire esophagus. Using gentle pressure attempt was made to advance food in distal esophagus into stomach but this was unsuccessful. Using rat toothed forceps multiple passes were made removing green beans and ham from his esophagus and finally were able to advance the impaction into the stomach. The distal esophagus was macerated and had a superficial rent in it. With gentle guidance and numerous passes the rest of the food in the esophagus was advanced into the stomach. There was no blood loss other than from irritation. Impression: - Normal stomach. - Normal examined duodenum. - Food in the esophagus. - No specimens collected. Recommendation: - Admit the patient to hospital [facility] for observation. - Make the patient NPO starting today. Procedure Code(s): - 16907, Esophagogastroduodenoscopy, flexible, transoral; diagnostic, including collection of specimen(s) by brushing or washing, when performed (separate procedure) Diagnosis Code(s): - T18.108A, Unspecified foreign body in esophagus causing other injury, initial encounter - T18.128A, Food in esophagus causing other injury, initial encounter CPT(R) - 2023 copyright [employer]. All Rights Reserved. The CPT codes, CCI edits and ICD codes generated are intended as suggestions and were generated based on input data. These codes are preliminary and upon remote medical coder review may be revised to meet current compliance and payer requirements. The provider is responsible for the final determination of appropriate codes, and modifiers. Dr. Andrea Lopez MD This document has been electronically signed. Note Initiated:11/25/2023 Note Completed:11/25/2023 1:52 AM \\[facility] center[facility] [id number]
[2023-11-25] MEDS ORDERED: DEXAMETHASONE SOD INJ 4 MG/ML VIAL ONE (01:59)
--- NOTE | 2023-11-25 02:10 | Anesthesiology Progress Note ---
Date of Service November 25, 2023 Anesthesia Post Procedure Vital Signs Vital Signs: Temp Pulse Pulse Pulse Resp BP BP 11/25/23 01:55 85 16 165/107 H 11/25/23 01:45 36.4 C L 96 H 15 155/99 H 11/25/23 00:08 85 16 11/24/23 23:10 88 11/24/23 23:03 11/24/23 22:23 94 H 15 11/24/23 22:00 36.4 C L 88 18 132/82 BP Pulse Ox O2 Del Method O2 Flow Rate 11/25/23 01:55 100 Nebulizer 11/25/23 01:45 97 Nebulizer 10 11/25/23 00:08 129/85 95 Room Air 11/24/23 23:10 11/24/23 23:03 95 Room Air 11/24/23 22:23 137/85 94 Room Air 11/24/23 22:00 97 Room Air Pain Intensity Throat: Pain Intensity: 2 Transfer of Care Handoff Completed per policy Notes Mental Status: alert / awake / arousable Patient Amnestic to Procedure: Yes Nausea / Vomiting: adequately controlled Pain: adequately controlled Airway Patency, RR, SpO2: stable & adequate BP & HR: stable & adequate Hydration State: stable & adequate Anesthetic Complications: no major complications apparent and Pt Satisfied with anesthetic care Notes: Intra-op following intubation patient had severe brochospasm. SpO2 dropped to mid 80s and TVs dropped to 50-70 cc and significant inspiratory and expiratory wheezing heard bilaterally. Patient was treated with sevo, propofol, albuterol, and epinephrine with improvement in SpO2 and TV. Patient and ETT thoroughly suctioned and he was extubated in OR subsequently. AAOx3 however audible wheezing persisted. Taken to ICU for post op care. Post op patient received duoneb breathing treatment and 8 mg decadron. Wheezing improved significantly. Given intraop complication and timing of procedure in middle of the night, plan to keep patient overnight for respiratory observation.
--- NOTE | 2023-11-25 03:06 | History & Physical Report ---
Date of Service November 25, 2023 Assessment & Plan (1) Esophageal obstruction due to food impaction: Plan: 48-year-old male with history of hypertension, panic attacks, and mild intermittent asthma as per [facility] but patient says asthma not diagnosed yet and needs more test for it comes with food impaction after eating hams and beans today. Patient has a history of trouble swallowing before but not as severe as today and usually resolves after drinking water. Currently patient is s/p EGD and food was found in entire esophagus. Using a rat tooth forceps multiple passes were made and finally was able to advanced into the stomach. The distal esophagus was macerated and has superficial rent in it. During the procedure following intubation patient had severe bronchospasm and oxygen saturation dropped into the mid 80s and tidal volume dropped into 50 to 70 cc and significant inspiratory and expiratory wheezing heard as per anesthesia. Patient was treated with albuterol epinephrine with improvement in oxygen sats and tidal volume , ETT was thoroughly suctioned and subsequently extubated. But wheezing was persisted. And patient is given DuoNeb breathing treatment and 8 mg Decadron and wheezing seems to improved. Given this complication thought to observe the patient overnight in the hospital. Patient currently resting comfortably. Oxygen status sometimes dropping into 80s but quickly coming into 90s. Denies any cough. Denies chest pain. Denies shortness of breath. Denies headache. No nausea. No abdominal pain. Hemodynamics are okay. afebrile. Esophageal obstruction due to food impaction s/p EGD and relieve of obstruction will keep him n.p.o. per GI recommendations IV Protonix, IV fluids further recommendations as per GI bronchospasm during the procedure with oxygen sats dropping and wheezing during the procedure required epinephrine and albuterol after procedure was given Decadron and DuoNeb currently no obvious wheezing we will follow chest x-ray for any aspiration empiric Unasyn nebs close monitor mild intermittent asthma patient says not diagnosed yet albuterol as needed hypertension is on losartan which is held as currently n.p.o. IV hydralazine as needed will monitor history of panic attacks on citalopram to start when able to take p.o. Alcoholism banana bag iv thiamine and folic acid iv Ativan per per protocol close monitor. DVT prophylaxis SCDs disposition med/telemetry full code. History of Present Illness Chief Complaint: Food impaction and bronchospasm Primary Care Provider: Ramy Verdin DO 48-year-old male with history of hypertension, panic attacks, and mild intermittent asthma as per epic but patient says asthma not diagnosed yet and needs more test for it comes with food impaction after eating hams and beans today. Patient has a history of trouble swallowing before but not as severe as today and usually resolves after drinking water. Currently patient is s/p EGD and food was found in entire esophagus. Using a rat tooth forceps multiple passes were made and finally was able to advanced into the stomach. The distal esophagus was macerated and has superficial rent in it. During the procedure following intubation patient had severe bronchospasm and oxygen saturation dropped into the mid 80s and tidal volume dropped into 50 to 70 cc and significant inspiratory and expiratory wheezing heard as per anesthesia. Patient was treated with albuterol epinephrine with improvement in oxygen sats and tidal volume , ETT was thoroughly suctioned and subsequently extubated. But wheezing was persisted. And patient is given DuoNeb breathing treatment and 8 mg Decadron and wheezing seems to improved. Given this complication thought to observe the patient overnight in the hospital. Patient currently resting comfortably. Oxygen status sometimes dropping into 80s but quickly coming into 90s. Denies any cough. Denies chest pain. Denies shortness of breath. Denies headache. No nausea. No abdominal pain. Hemodynamics are okay. afebrile. Past medical history. As mentioned above past surgical history. Tonsillectomy, vasectomy. Social history. Snuff tobacco. 10 standard drinks of alcohol per week as per epic. No drug use. Family history. Mother has hypertension. Maternal grandfather had colon cancer. Maternal grandmother had blood cancer. Diabetes. Paternal grandmother had [place]. Paternal grandfather had bypass Allergies Allergy/AdvReac Type Severity Reaction Status Date / Time No Known Allergies Allergy Verified 11/24/23 23:32 Home Medications Medication Instructions Recorded Confirmed Type albuterol sulfate 90 mcg/actuation 1 - 2 puff inhalation DIRECTED 11/24/23 11/24/23 History aerosol inhaler PRN Shortness Of Breath Or Wheezing citalopram 20 mg tablet 20 mg PO QAM 11/24/23 11/24/23 History losartan 50 mg tablet 75 mg PO QAM 11/24/23 11/24/23 History Past Med/Surg History Problem List Inability to swallow (Acute) Esophageal obstruction due to food impaction (Acute) Carpal tunnel syndrome (Chronic) Hypertension (Acute) Lightheadedness (Acute) Social History Smoking Status: Never smoker Tobacco Type: Smokeless Tobacco (Dip or Chew) Do You Dip or Chew Tobacco: Yes; Hx Alcohol Use: Yes Alcohol type: beer Hx Substance Use: No Preferred Language: Kyrgyz Communication Ability: Effective Nib Adjuster Required: No Beliefs That Will Affect Care: None Current Living Situation: Significant Other Other Information That Helps Us Care for You: No Feels Safe at Home: Yes Safety Concerns: Feels Safe At This Time Assistive Devices: CPAP Assistive Devices Comment: pt none compliante with CPAP Review of Systems Review of Systems: All systems reviewed & are unremarkable except as noted in HPI & below Physical Exam Physical Exam: General- adult Head- atraumatic Eyes- EOMI Neck- supple. Lungs- clear to auscultation no wheezing or crackles Heart- regular rhythm; no murmur, no gallop. Abdomen- normal bowel sounds, soft, nontender, no distension Extremities- trace pretibial edema, no erythema seen Neuro- alert, oriented EOMI; no facial palsy; no dysarthria; moves extremities Results & Data Results & Data Vital Signs (Past 12 Hours) Vital Signs Temp Pulse Pulse Pulse Resp BP BP 11/25/23 02:30 85 14 131/80 11/25/23 02:15 36.4 C L 88 17 155/99 H 11/25/23 02:05 92 H 13 146/82 H 11/25/23 01:55 85 16 165/107 H 11/25/23 01:45 36.4 C L 96 H 15 155/99 H 11/25/23 00:08 85 16 11/24/23 23:10 88 11/24/23 23:03 11/24/23 22:23 94 H 15 11/24/23 22:00 36.4 C L 88 18 132/82 BP Pulse Ox O2 Del Method O2 Flow Rate 11/25/23 02:30 94 Room Air 11/25/23 02:15 94 Room Air 11/25/23 02:05 91 Room Air 11/25/23 01:55 100 Nebulizer 10 11/25/23 01:45 97 Nebulizer 10 11/25/23 00:08 129/85 95 Room Air 11/24/23 23:10 11/24/23 23:03 95 Room Air 11/24/23 22:23 137/85 94 Room Air 11/24/23 22:00 97 Room Air Diagnostic Findings Laboratory Results WBC 6.56 K/ul (4.8-10.8) 11/24/23 22:21 RBC 5.03 M/uL (4.70-6.10) 11/24/23 22:21 Hgb 15.5 g/dl (14.0-18.0) 11/24/23 22:21 Hct 46.0 % (42.0-52.0) 11/24/23 22:21 MCV 91.5 fL (80.0-100.0) 11/24/23 22:21 MCH 30.8 pg (25.0-34.0) 11/24/23 22:21 MCHC 33.7 g/dL (32.0-36.0) 11/24/23 22:21 RDW Std Deviation 40.8 fL (36.4-46.3) 11/24/23 22:21 RDW Coeff of Nehemiah 12.2 % (11.5-14.5) 11/24/23 22:21 Plt Count 286 K/uL (130-400) 11/24/23 22:21 MPV 9.6 fL (9.4-12.4) 11/24/23 22:21 Immature Gran % (Auto) 0.3 % 11/24/23 22:21 Neut % (Auto) 44.0 % 11/24/23 22:21 Lymph % (Auto) 37.0 % 11/24/23 22:21 [place] % (Auto) 9.0 % 11/24/23 22:21 Eos % (Auto) 8.8 % 11/24/23 22:21 Baso % (Auto) 0.9 % 11/24/23 22:21 Neut # (Auto) 2.88 K/uL (1.40-6.50) 11/24/23 22:21 Lymph # (Auto) 2.43 K/uL (1.20-3.40) 11/24/23 22:21 [place] # (Auto) 0.59 K/uL (0.11-0.59) 11/24/23 22:21 Eos # (Auto) 0.58 K/uL (0.00-0.50) H 11/24/23 22:21 Baso # (Auto) 0.06 K/uL (0.00-0.20) 11/24/23 22:21 Immature Gran # (Auto) 0.02 K/uL (0.01-0.20) 11/24/23 22:21 Sodium 138 mmol/L (136-145) 11/24/23 22:21 Potassium 3.9 mmol/L (3.5-5.1) 11/24/23 22:21 Chloride 102 mmol/L (98-107) 11/24/23 22:21 Carbon Dioxide 25 mmol/L (21-32) 11/24/23 22:21 Anion Gap 11 (3-11) 11/24/23 22:21 BUN 12 mg/dl (6-23) 11/24/23 22:21 Creatinine 0.90 mg/dl (0.6-1.4) 11/24/23 22:21 Est Cr Clr Drug Dosing 113.8 ml/min 11/24/23 22:21 Est GFR ( Amer) 116.6 ml/min 11/24/23 22:21 Est GFR (Non-Af Amer) 100.6 ml/min 11/24/23 22:21 BUN/Creatinine Ratio 13.3 (10-20) 11/24/23 22:21 Glucose 80 mg/dl (70-99(Fasting)) 11/24/23 22:21 POC Glucose 92 mg/dl (70-99) 11/24/23 22:56 Calcium 8.8 mg/dl (8.6-10.3) 11/24/23 22:21 Total Bilirubin 0.5 mg/dl (0.2-1.0) 11/24/23 22:21 AST 23 U/L (13-39) 11/24/23 22:21 ALT 15 U/L (7-52) 11/24/23 22:21 Alkaline Phosphatase 64 U/L (34-104) 11/24/23 22:21 Total Protein 7.8 gm/dl (6.0-8.3) 11/24/23 22:21 Albumin 4.8 gm/dl (3.4-5.0) 11/24/23 22:21 Globulin 3.0 gm/dl (2.5-4.0) 11/24/23 22:21 Albumin/Globulin Ratio 1.6 (0.9-2) 11/24/23 22:21 Code Status & VTE Plan VTE Prophylaxis Plan VTE Prophylaxis will be ordered: Yes
[2023-11-25] MEDS ORDERED: ALBUTEROL HFA 8 GM INHALER INH PRN (03:08)
[2023-11-25] MEDS ORDERED: AMPICILLIN SOD/SULBACTAM SOD 3 GM VIAL IV SCH (03:08)
[2023-11-25] MEDS ORDERED: NITROGLYCERIN SL 0.4 MG/TAB TAB SL PRN (03:08)
[2023-11-25] MEDS ORDERED: LEVALBUTEROL 1.25 MG/3 ML NEB NEB PRN (03:08)
[2023-11-25] MEDS ORDERED: hydrALAZINE HCL 20 MG/ML VIAL IV PRN (03:08)
[2023-11-25] MEDS ORDERED: ACETAMINOPHEN 325 MG TAB PO PRN (03:08)
[2023-11-25] MEDS: ALBUT/IPRATROP 3MG/0.5MG NEB 3 ML VIAL NEB STA (03:10)
[2023-11-25] MEDS: DEXAMETHASONE SOD INJ 4 MG/ML VIAL IV STA (03:10)
[2023-11-25] MEDS ORDERED: Ativan IV Alcohol Withdrawal--Active Protocol IV PRN (03:33)
[2023-11-25] MEDS ORDERED: LORazepam 1 MG in SYRINGE 0.5 ML IV PRN (03:33)
[2023-11-25] MEDS ORDERED: LORazepam 2 MG in SYRINGE 1 ML IV PRN (03:33)
[2023-11-25] MEDS ORDERED: LORazepam 3 MG in SYRINGE 1.5 ML IV PRN (03:33)
[2023-11-25] MEDS: SODIUM CHLORIDE 0.9% 1,000 ML IV SCH (03:48)
[2023-11-25] MEDS: AMPICILLIN/SULBACTAM SOD 3,000 MG in SODIUM CHLOR 0.9% MINI-B 100 ML IV SCH (03:49)
[2023-11-25] MEDS: MULTI-VITAMIN INFUSION 10 ML, THIAMINE HCL 100 MG, FOLIC ACID 1 MG in SODIUM CHLORIDE 0... IV ONE (05:01)
[2023-11-25 05:34] LABS: Hematocrit (blood only) 42.7 % (42.0-52.0); Hemoglobin 14.1 g/dl (14.0-18.0); Mean Corpuscular Hemoglobin 30.7 pg (25.0-34.0); Mean Platelet Volume 9.6 fL (9.4-12.4); Platelet Count 254 K/uL (130-400); RDW Coefficient of Variation 12.3 % (11.5-14.5); RDW Standard Deviation 42.4 fL (36.4-46.3); Red Blood Count 4.59 M/uL (4.70-6.10); White Blood Count 11.59 K/ul (4.8-10.8)
[2023-11-25 05:50] LABS: Calcium 8.3 mg/dl (8.6-10.3); Creatinine Clr Calc Pharmacy 109.1 ml/min; Est GFR (African American) 112.1 ml/min; Est GFR (Non-African American) 96.7 ml/min; Potassium 4.6 mmol/L (3.5-5.1)
[2023-11-25 06:18] LABS: Basophils # (auto) 0.02 K/uL (0.00-0.20); Basophils % (auto) 0.2 %; Eosinophils # (auto) 0.03 K/uL (0.00-0.50); Eosinophils % (auto) 0.3 %; Immature Granulocytes # (auto) 0.05 K/uL (0.01-0.20); Immature Granulocytes % (auto) 0.4 %; Lymphocytes # (auto) 0.39 K/uL (1.20-3.40); Lymphocytes % (auto) 3.4 %; Monocytes # (auto) 0.21 K/uL (0.11-0.59); Monocytes % (auto) 1.8 %; Neutrophils # (auto) 10.89 K/uL (1.40-6.50); Neutrophils % (auto) 93.9 %
[2023-11-25] MEDS: LEVALBUTEROL 1.25 MG/3 ML NEB NEB SCH (07:37)
--- NOTE | 2023-11-25 07:52 | XRay Report ---
XR chest 1V portable HISTORY: aspiration? COMPARISON: Chest 11/30/2014. FINDINGS: The lungs are clear. Cardiac silhouette is normal in size. No pleural effusions. No pneumot horax. IMPRESSION: No acute process. ACT 112: Negative or not required by law. Electronically signed by: Raphael Brown M.D. 11/25/2023 7:51 AM
--- NOTE | 2023-11-25 08:36 | Gastroenterology Progress Note ---
Date of Service November 25, 2023 Assessment & Plan (1) Esophageal obstruction due to food impaction: Plan: Okay with me to go home today. Will start him on liquids and advance him if he does well. Admission and Anticipated Discharge Date Admission Date: November 25, 2023 Subjective Feeling well. No chest pain, a little scratchy throat. Breathing is normal for him. Has lung test scheduled next month Physical Exam Physical Exam: He looks well Results & Data Vital Signs (Past 12 Hours) Vital Signs Temp Pulse Pulse Pulse Pulse Resp BP 11/25/23 07:39 105 H 18 11/25/23 07:38 36.8 C 89 18 11/25/23 03:24 11/25/23 03:24 36.7 C 92 H 20 11/25/23 03:16 80 11/25/23 02:45 90 24 11/25/23 02:30 85 14 11/25/23 02:15 36.4 C L 88 17 11/25/23 02:05 92 H 13 11/25/23 01:55 85 16 11/25/23 01:45 36.4 C L 96 H 15 11/25/23 00:08 85 16 11/24/23 23:10 88 11/24/23 23:03 11/24/23 22:23 94 H 15 11/24/23 22:00 36.4 C L 88 18 132/82 BP BP Pulse Ox O2 Del Method O2 Flow Rate 11/25/23 07:39 91 Room Air 11/25/23 07:38 132/73 92 Room Air 11/25/23 03:24 Room Air 11/25/23 03:24 148/85 H 92 Room Air 11/25/23 03:16 11/25/23 02:45 140/78 93 Room Air 11/25/23 02:30 131/80 94 Room Air 11/25/23 02:15 155/99 H 94 Room Air 11/25/23 02:05 146/82 H 91 Room Air 11/25/23 01:55 165/107 H 100 Nebulizer 11/25/23 01:45 155/99 H 97 Nebulizer 11/25/23 00:08 129/85 95 Room Air 11/24/23 23:10 11/24/23 23:03 95 Room Air 11/24/23 22:23 137/85 94 Room Air 11/24/23 22:00 97 Room Air
[2023-11-25] MEDS: FOLIC ACID 1 MG in SYRINGE 9.8 ML IV SCH (08:52)
[2023-11-25] MEDS: THIAMINE HCL 100 MG in SYRINGE 9 ML IV SCH (08:52)
[2023-11-25] MEDS: PANTOprazole 40 MG in SYRINGE 0 ML IV SCH (08:53)
--- NOTE | 2023-11-25 11:13 | Discharge Summary ---
Discharge Summary Date of Service November 25, 2023 Principal Dx & Hospital Course #1 = Principal Diagnosis (1) Esophageal obstruction due to food impaction: Mr. Alexander is a 48-year-old male with history of hypertension, panic attacks, and mild intermittent asthma as per epic but patient says asthma not diagnosed yet and needs more test for it comes with food impaction after eating hams and beans today. Patient has a history of trouble swallowing before but not as severe as today and usually resolves after drinking water. Currently patient is s/p EGD and food was found in entire esophagus. Using a rat tooth forceps multiple passes were made and finally was able to advanced into the stomach. The distal esophagus was macerated and has superficial rent in it. During the procedure following intubation patient had severe bronchospasm and oxygen saturation dropped into the mid 80s and tidal volume dropped into 50 to 70 cc and significant inspiratory and expiratory wheezing heard as per anesthesia. Patient was treated with albuterol epinephrine with improvement in oxygen sats and tidal volume , ETT was thoroughly suctioned and subsequently extubated. But wheezing was persisted. And patient is given DuoNeb breathing treatment and 8 mg Decadron and wheezing seems to improved. Given this complication thought to observe the patient overnight in the hospital. Patient currently resting comfortably. Oxygen status sometimes dropping into 80s but quickly coming into 90s On day of discharge, patient was able to drink soda, eat pudding/crackers and lunch without any difficulty. Patient ambulating halls and denied any pain. Esophageal obstruction due to food impaction s/p EGD and relieve of obstruction Diet advanced per GI and without difficulty bronchospasm no further abx necessary, no oxygen requirement mild intermittent asthma patient says not diagnosed yet albuterol as needed hypertension resume home bp meds history of panic attacks on citalopram Alcoholism encouraged lifestyle modification Notes For Next Care Provider Medication Changes From Visit None Admission HPI Per Admitting Provider 48-year-old male with history of hypertension, panic attacks, and mild intermittent asthma as per epic but patient says asthma not diagnosed yet and needs more test for it comes with food impaction after eating hams and beans today. Patient has a history of trouble swallowing before but not as severe as today and usually resolves after drinking water. Currently patient is s/p EGD and food was found in entire esophagus. Using a rat tooth forceps multiple passes were made and finally was able to advanced into the stomach. The distal esophagus was macerated and has superficial rent in it. During the procedure following intubation patient had severe bronchospasm and oxygen saturation dropped into the mid 80s and tidal volume dropped into 50 to 70 cc and significant inspiratory and expiratory wheezing heard as per anesthesia. Patient was treated with albuterol epinephrine with improvement in oxygen sats and tidal volume , ETT was thoroughly suctioned and subsequently extubated. But wheezing was persisted. And patient is given DuoNeb breathing treatment and 8 mg Decadron and wheezing seems to improved. Given this complication thought to observe the patient overnight in the hospital. Patient currently resting comfortably. Oxygen status sometimes dropping into 80s but quickly coming into 90s. Denies any cough. Denies chest pain. Denies shortness of breath. Denies headache. No nausea. No abdominal pain. Hemodynamics are okay. afebrile. Past medical history. As mentioned above past surgical history. Tonsillectomy, vasectomy. Social history. Snuff tobacco. 10 standard drinks of alcohol per week as per [facility]. No drug use. Family history. Mother has hypertension. Maternal grandfather had colon cancer. Maternal grandmother had blood cancer. Diabetes. Paternal grandmother had [place]. Paternal grandfather had bypass Admission Exam Per Admitting Provider General- adult Head- atraumatic Eyes- EOMI Neck- supple. Lungs- clear to auscultation no wheezing or crackles Heart- regular rhythm; no murmur, no gallop. Abdomen- normal bowel sounds, soft, nontender, no distension Extremities- trace pretibial edema, no erythema seen Neuro- alert, oriented EOMI; no facial palsy; no dysarthria; moves extremities Discharge Exam Constitutional WD/WN, vitals as above Respiratory normal respiratory effort, lungs clear to auscultation Cardiovascular RRR, no murmur, no edema Gastrointestinal (Abdomen) normal bowel sounds, soft, nontender, no hepatosplenomegaly Musculoskeletal no cyanosis or clubbing, extremities motor strength 5/5 Updated Medication List Medication Instructions Recorded Confirmed Type albuterol sulfate 90 mcg/actuation 1 - 2 puff inhalation DIRECTED 11/24/23 11/24/23 History aerosol inhaler PRN Shortness Of Breath Or Wheezing citalopram 20 mg tablet 20 mg PO QAM 11/24/23 11/24/23 History losartan 50 mg tablet 75 mg PO QAM 11/24/23 11/24/23 History Hospital Stay Data Consultations 11/24/23 23:17 Consult Gastroenterology Stat 11/25/23 02:12 Consult Hospitalist Stat Procedures Performed Operation Date: 11/25/23 00:30 Actual Procedures p EGD, Removal of food bolus(Not Applicable) - Andrea Lopez Jr, MD Pending Results Patient Have Any Pending Studies at Discharge: No Discharge Instructions Given to Patient (Per Discharging Provider) You were admitted for airway monitoring after bronchospasm from food impaction removal. You did well and tolerated advanced diet. Total Time Total Time Spent Total Time Spent (In Minutes): 35
== END 2023-11-25 11:34 | disposition home or self-care (01) | DRG 395 ==
LOC: ED 21:52 → OR 11-25 00:30 → 2N 11-25 02:41